=== PATIENT | female | born 1965 | race American Indian/Alaskan Native ===

== ENCOUNTER 2020-12-22 23:05 | Emergency (ER) | payer OTHER ==
[2020-12-23] VITALS: BP 156/78
[2020-12-23] MEDS ORDERED: ASPIRIN 325 MG TAB PO ONE (00:07)
[2020-12-23 01:25] LABS: Basophils % (Auto) 0.6 % (0.0-1.8); Eosinophils # (Auto) 0.1 K/mm3 (0.0-0.4); Eosinophils % (Auto) 1.9 % (0.0-4.3); Hematocrit 42.3 % (30.3-42.9); Hemoglobin 14.7 gm/dl (10.1-14.3); Lymphocytes # (Auto) 2.6 K/mm3 (1.2-5.4); Lymphocytes % (Auto) 35.7 % (13.4-35.0); Mean Corpuscular HGB Conc 35 % (30-34); Mean Corpuscular Volume 98 fl (79-97); Monocytes # (Auto) 0.5 K/mm3 (0.0-0.8); Monocytes % (Auto) 7.4 % (0.0-7.3); Platelet Count 306 K/mm3 (140-440); Red Cell Distribution Width 13.1 % (13.2-15.2)
[2020-12-23 01:29] LABS: Alanine Aminotransferase 16 units/L (7-56); Albumin 5.2 g/dL (3.9-5); Blood Urea Nitrogen 7 mg/dL (7-17); Calcium 9.7 mg/dL (8.4-10.2); Hemolysis Index 13
[2020-12-23 01:30] LABS: BUN/Creatinine Ratio 14
--- NOTE | 2020-12-23 01:43 | XRay Report ---
CHEST 2 VIEWS INDICATION: sob. COMPARISON: FINDINGS: Support devices: None. Heart: Within normal limits. Lungs: No acute air space or interstitial disease. Pleura: No significant pleural effusion. No pneumothorax. Additional findings: None. IMPRESSION: 1. No acute findings. Signer Name: Jeff Simpson MD Signed: 12/23/2020 1:38 AM Workstation Name: [id number]
--- NOTE | 2020-12-23 10:23 | Electrocardiograph Report ---
[facility] Test Date: 2020-12-23 Test Time: 00:13:31 Pat Name: DELMI DAVIS Department: Room: Gender: F Harpsichord Maker: KANCHAN : 1965 Requested By: STEPHEN PHAM Order Number: [id number] Reading MD: Johan Negron Measurements Intervals [place] Rate: 63 P: 52 [place]: 183 QRS: -1 QRSD: 113 T: 40 QT: 437 QTc: 448 Interpretive Statements Sinus rhythm Incomplete RBBB and LAFB No previous ECG available for comparison Electronically Signed On 12-23-2020 10:23:18 EDT by Johan Negron
== END 2020-12-23 03:05 | disposition left against medical advice (07) ==
LOC: ED 23:05
DX: R53.1 Weakness (principal); Z53.21 Procedure and treatment not carried out due to patient leaving prior to being seen by health care provider
CPT/HCPCS: 36415; 71046; 80053; 84484; 85025; 93005

== ENCOUNTER 2021-01-16 06:53 | Inpatient (IN) | payer OTHER ==
[2021-01-16 07:33] LABS: Basophils # (Auto) 0.1 K/mm3 (0.0-0.1); Basophils % (Auto) 0.5 % (0.0-1.8); Eosinophils # (Auto) 0.3 K/mm3 (0.0-0.4); Eosinophils % (Auto) 2.4 % (0.0-4.3); Hematocrit 36.7 % (30.3-42.9); Lymphocytes # (Auto) 2.3 K/mm3 (1.2-5.4); Lymphocytes % (Auto) 21.4 % (13.4-35.0); Mean Corpuscular HGB Conc 36 % (30-34); Mean Corpuscular Volume 97 fl (79-97); Monocytes # (Auto) 0.7 K/mm3 (0.0-0.8); Monocytes % (Auto) 6.7 % (0.0-7.3); Platelet Count 255 K/mm3 (140-440); Red Blood Count 3.77 M/mm3 (3.65-5.03); Red Cell Distribution Width 12.8 % (13.2-15.2)
[2021-01-16 07:53] LABS: Blood Urea Nitrogen 4 mg/dL (7-17); Calcium 9.6 mg/dL (8.4-10.2); Hemolysis Index 17
--- NOTE | 2021-01-16 08:07 | XRay Report ---
CHEST 2 VIEWS INDICATION: Chest Pain. COMPARISON: 12/23/2020 FINDINGS: Support devices: None. Heart: Within normal limits. Lungs/pleura: No acute air space or interstitial disease. No pneumothorax. Additional findings: None. IMPRESSION: No acute findings. Signer Name: J Carlos Bauer Jr, MD Signed: 01/16/2021 8:03 AM Workstation Name: [id number]
--- NOTE | 2021-01-16 08:16 | Emergency Department Report ---
ED Chest Pain HPI - General Chief Complaint: Chest Pain Stated Complaint: CHEST PAIN Time Seen by Provider: 01/16/21 08:00 Source: patient Mode of arrival: Wheelchair Limitations: No Limitations - History of Present Illness Initial Comments: 55-year-old female with history of hypertension, asthma, sinus headaches presents complaining of mid substernal chest pain since approximately 2 AM this morning. The patient reports that she woke up in the middle of the night approximately 2 AM with pain in her chest which was radiating to her back. She describes the pain as very sharp. She says that since waking up with the pain at 2 AM, the pain has been persistent and has not gone away. Separate from the pain in the chest she also has generalized body aches and mild global headache. The chest pain radiates to her back but does not radiate to the jaw or to the arms. She denies any symptoms associated with the chest pain including nausea/vomiting, shortness of breath, cough, palpitations, syncope, or any other complaints. She also denies any fever/chills, vision change, new neck pain, abdominal pain, numbness, focal weakness, or any other complaints. She has not tried taking anything for her symptoms. She is not vaccinated against the novel coronavirus. Severity scale (0 -10): 8 - Related Data Allergies Allergy/AdvReac Type Severity Reaction Status Date / Time No Known Allergies Allergy Verified 12/23/20 03:06 Heart Score - HEART Score History: Moderately suspicious EKG: Normal Age: 45-65 Risk factors: 1-2 risk factors Troponin: < normal limit HEART Score: 3 - EKG Read Time Time EKG Completed: 07:01 EKG Read Time: 07:05 ED Review of Systems ROS: Stated complaint: CHEST PAIN Other details as noted in HPI Constitutional: denies: chills, fever Eyes: denies: eye pain, vision change ENT: denies: throat pain, congestion Respiratory: denies: cough, shortness of breath Cardiovascular: chest pain. denies: palpitations, edema, syncope Gastrointestinal: denies: abdominal pain, nausea, vomiting Genitourinary: denies: dysuria, frequency Musculoskeletal: myalgia. denies: joint swelling Skin: denies: rash Neurological: headache. denies: weakness, numbness ED Past Medical Hx - Past Medical History Hx Hypertension: Yes Hx Arthritis: Yes Hx Headaches / Migraines: Yes Hx Asthma: Yes Additional medical history: chest pain, denies any stents - Surgical History Past Surgical History?: Yes Additional Surgical History: c-sections x 2 ED Physical Exam - General Limitations: No Limitations - Other Other exam information: GENERAL: Well developed and well nourished. No acute distress HEENT: Normocephalic. No obvious signs of trauma. Moist mucous membranes. EYES: Extraocular movements are intact. NECK: Supple. Full painless ROM. Trachea is midline. LUNGS: Nonlabored breathing. Equal chest rise bilaterally. Clear to auscultation bilaterally. HEART/CARDIOVASCULAR: Regular rate and rhythm. No murmurs or rubs. VASCULAR: 2+ peripheral pulses, equal bilaterally. Cap refill < 2 seconds ABDOMEN: Abdomen is soft and nondistended. There is no significant tenderness, guarding or rebound. SKIN: Skin is warm and dry NEURO: Patient is awake, alert, and oriented. senior medical director II-XII grossly intact. No focal deficits. Normal motor and sensory exam throughout. Normal speech. MUSCULOSKELETAL: No obvious deformities. No significant tenderness. Normal ROM throughout. BACK/SPINE: No midline tenderness or step-offs of the C/T/L spine. ED Course Vital Signs 01/16/21 01/16/21 01/16/21 07:02 08:12 08:56 Temperature 98.5 F Pulse Rate 74 68 61 Respiratory 24 18 Rate Blood Pressure 188/95 Blood Pressure 197/117 187/90 [Right] O2 Sat by Pulse 99 98 Oximetry 01/16/21 01/16/21 01/16/21 09:47 10:41 11:23 Temperature Pulse Rate 66 68 Respiratory 16 16 Rate Blood Pressure 188/92 Blood Pressure 171/85 [Right] O2 Sat by Pulse 98 Oximetry 01/16/21 11:35 Temperature Pulse Rate 65 Respiratory Rate Blood Pressure Blood Pressure 165/83 [Right] O2 Sat by Pulse Oximetry BIB score - Bib Score Age > 65: (0) No Aspirin use within the Past 7 Days: (0) No 3 or more CAD Risk Factors: (0) No 2 or more Angina events in past 24 hrs: (0) No Known CAD with more than 50% Stenosis: (0) No Elevated Cardiac Markers: (0) No ST Deviation Greater than 0.5mm: (0) No BIB Score: 0 ED Medical Decision Making - Lab Data Result diagrams: 01/16/21 07:05 01/16/21 07:05 Lab Results 01/16/21 01/16/21 01/16/21 Range/Units 07:05 07:05 07:05 WBC 10.6 (4.5-11.0) K/mm3 RBC 3.77 (3.65-5.03) M/mm3 Hgb 13.0 (10.1-14.3) gm/dl Hct 36.7 (30.3-42.9) % MCV 97 (79-97) fl MCH 35 H (28-32) pg MCHC 36 H (30-34) % RDW 12.8 L (13.2-15.2) % Plt Count 255 (140-440) K/mm3 Lymph % (Auto) 21.4 (13.4-35.0) % [place] % (Auto) 6.7 (0.0-7.3) % Eos % (Auto) 2.4 (0.0-4.3) % Baso % (Auto) 0.5 (0.0-1.8) % Lymph # (Auto) 2.3 (1.2-5.4) K/mm3 [place] # (Auto) 0.7 (0.0-0.8) K/mm3 Eos # (Auto) 0.3 (0.0-0.4) K/mm3 Baso # (Auto) 0.1 (0.0-0.1) K/mm3 Seg Neutrophils % 69.0 (40.0-70.0) % Seg Neutrophils # 7.3 (1.8-7.7) K/mm3 PT (12.2-14.9) Sec. INR (0.87-1.13) APTT (24.2-36.6) Sec. D-Dimer < 135 (0-234) ng/mlDDU Sodium 140 (137-145) mmol/L Potassium 3.7 (3.6-5.0) mmol/L Chloride 101.7 (98-107) mmol/L Carbon Dioxide 27 (22-30) mmol/L Anion Gap 15 mmol/L BUN 4 L (7-17) mg/dL Creatinine 0.5 L (0.6-1.2) mg/dL Estimated GFR > 60 ml/min BUN/Creatinine Ratio 8 % Glucose 108 H (65-100) mg/dL Calcium 9.6 (8.4-10.2) mg/dL Magnesium (1.7-2.3) mg/dL Total Bilirubin (0.1-1.2) mg/dL Direct Bilirubin (0-0.2) mg/dL Indirect Bilirubin mg/dL AST (5-40) units/L ALT (7-56) units/L Alkaline Phosphatase (35-129) units/L Troponin T < 0.010 (0.00-0.029) ng/mL Total Protein (6.3-8.2) g/dL Albumin (3.9-5) g/dL Albumin/Globulin Ratio % 01/16/21 01/16/21 Range/Units 07:05 08:20 WBC (4.5-11.0) K/mm3 RBC (3.65-5.03) M/mm3 Hgb (10.1-14.3) gm/dl Hct (30.3-42.9) % MCV (79-97) fl MCH (28-32) pg MCHC (30-34) % RDW (13.2-15.2) % Plt Count (140-440) K/mm3 Lymph % (Auto) (13.4-35.0) % [place] % (Auto) (0.0-7.3) % Eos % (Auto) (0.0-4.3) % Baso % (Auto) (0.0-1.8) % Lymph # (Auto) (1.2-5.4) K/mm3 [place] # (Auto) (0.0-0.8) K/mm3 Eos # (Auto) (0.0-0.4) K/mm3 Baso # (Auto) (0.0-0.1) K/mm3 Seg Neutrophils % (40.0-70.0) % Seg Neutrophils # (1.8-7.7) K/mm3 PT 13.9 (12.2-14.9) Sec. INR 1.01 (0.87-1.13) APTT 28.6 (24.2-36.6) Sec. D-Dimer (0-234) ng/mlDDU Sodium (137-145) mmol/L Potassium (3.6-5.0) mmol/L Chloride (98-107) mmol/L Carbon Dioxide (22-30) mmol/L Anion Gap mmol/L BUN (7-17) mg/dL Creatinine (0.6-1.2) mg/dL Estimated GFR ml/min BUN/Creatinine Ratio % Glucose (65-100) mg/dL Calcium (8.4-10.2) mg/dL Magnesium 2.00 (1.7-2.3) mg/dL Total Bilirubin 0.30 (0.1-1.2) mg/dL Direct Bilirubin < 0.2 (0-0.2) mg/dL Indirect Bilirubin 0.1 mg/dL AST 25 (5-40) units/L ALT 18 (7-56) units/L Alkaline Phosphatase 85 (35-129) units/L Troponin T (0.00-0.029) ng/mL Total Protein 7.7 (6.3-8.2) g/dL Albumin 4.7 (3.9-5) g/dL Albumin/Globulin Ratio 1.6 % - EKG Data -: EKG Interpreted by Hi - EKG Data 01/16/21 08:47 Normal sinus rhythm. Normal intervals. Normal axis. No ectopy. No significant ST segment or T wave abnormalities. - Radiology Data CHEST 2 VIEWS INDICATION: Chest Pain. COMPARISON: 12/23/2020 FINDINGS: Support devices: None. Heart: Within normal limits. Lungs/pleura: No acute air space or interstitial disease. No pneumothorax. Additional findings: None. IMPRESSION: No acute findings. Signer Name: J Carlos Bauer Jr, MD Signed: 01/16/2021 7:03 AM Workstation Name: [id number] CT CHEST WITH CONTRAST INDICATION / CLINICAL INFORMATION: assess for aortic dissection, chest pain, Pt states that she is having chest pain that radiate to her shoulder and down to her wrist. OMNI 300 100 ML. TECHNIQUE: Axial CT images were obtained through the chest after 100 cc IV contrast. Sagittal and coronal reformatted images. All CT scans at this location are performed using CT dose reduction for ALARA by means of automated exposure control. COMPARISON: None available. FINDINGS: HEART: No significant abnormality. THORACIC AORTA: Imaging of the thoracic aorta is slightly limited due to cardiac motion. No dissection is confidently identified. The ascending aorta measures 3.5 cm. The descending thoracic aorta measures 2.0 cm at the same level. Minimal atherosclerotic dis ease is noted. There appears to be a mild degree of fluid in the superior pericardial recess. MEDIASTINUM and CYN: No significant abnormality. LUNGS: No acute air space or interstitial disease. PLEURA: No significant pleural effusion. No pneumothorax. SKELETAL SYSTEM: No significant abnormality. UPPER ABDOMEN: No significant abnormality. ADDITIONAL FINDINGS: None. IMPRESSION: No acute cardiopulmonary process is appreciated. Evaluation of the thoracic aorta is slightly limited as described but no convincing aortic dissection is detected. Signer Name: J Carlos Bauer Jr, MD Signed: 01/16/2021 8:11 AM Workstation Name: [id number] - Medical Decision Making 55-year-old female presenting with persistent mid substernal chest pain radiating to the back since waking up at 2 AM. Patient also reports body aches and global pressure-like headache. No radiation of chest pain to the jaw or arms. No other associated symptoms. On initial assessment, the patient is a febrile and with normal vital signs other than significantly elevated blood pressure in the 190s over 110s. On physical examination, the patient appears slightly frail but otherwise has no significant abnormalities. The patient's heart score is 3 and BIB score is 0. Initial troponin is negative. There is no significant leukocytosis or anemia. There is no significant electrolyte abnormality. Kidney function is normal. D-dimer is negative. Initial troponin is negative. Nonetheless, given that the patient has chest pain radiating to the back with greatly elevated blood pressure we will perform CT angiogram of the chest to assess for aortic dissection. We will give one 0.4 mg nitrogly cerin sublingual for the patient's chest pain if the patient will except in light of her current headache. At 9:35 AM, the nurse alerted me that the patient received the sublingual nitroglycerin and this did not help her chest pain at all. In fact, she states that it might of worsened it. CT angiogram of the chest reveals no evidence of aortic dissection. Nonetheless, given the patient has persistent chest pain we will administer aspirin 325 mg and 2 mg of IV morphine and plan to admit the p atient to medicine for unstable angina and further trending of cardiac enzymes and work-up. All of this was discussed with the patient who expressed understanding and agreement with the plan of care. At 9:45 AM, I spoke with Dr. Valdez who states that the admission will go to Dr. Humphries. On repeat assessment at 10:20 AM after administration of morphine, the patient reports that her chest pain has improved dramatically, almost entirely resolved. Patient's blood pressure has improved from the 190 systolic to the 170s systolic after better pain control. We will give 10 mg of IV labetalol for better blood pressure control. Critical Care Time: Yes (35 mins) Critical care time in (mins) excluding proc time.: 35 Critical care attestation.: If time is entered above; I have spent that time in minutes in the direct care of this critically ill patient, excluding procedure time. Critical care time was spent in the evaluation/assessment, interpretation of diagnostic studies, and management of unstable angina as well as hypertensive urgency requiring ministration of IV antihypertensives. ED Disposition Clinical Impression: Unstable angina, Hypertensive urgency Disposition: -09 OP ADMIT IP TO THIS HOSP Is pt being admited?: Yes Condition: Stable
[2021-01-16] MEDS ORDERED: NITROGLYCERIN 0.4 MG TAB SUBL SL ONE (08:19)
[2021-01-16 08:27] LABS: BUN/Creatinine Ratio 8
[2021-01-16 08:32] LABS: Alanine Aminotransferase 18 units/L (7-56); Albumin 4.7 g/dL (3.9-5)
[2021-01-16 08:41] LABS: Bilirubin,Direct < 0.2 mg/dL (0-0.2)
--- NOTE | 2021-01-16 08:42 | XRay Report ---
CHEST 2 VIEWS 8:27 AM INDICATION / CLINICAL INFORMATION: Chest pains. COMPARISON: Earlier today at 7:28 AM. FINDINGS: SUPPORT DEVICES: None. HEART / MEDIASTINUM: The heart size and pulmonary vasculature are normal. There is mild calcification in the aortic arch without aneurysm. LUNGS / PLEURA: No significant pulmonary or pleural abnormality. No pneumothorax. ADDITIONAL FINDINGS: No significant additional findings. IMPRESSION: No acute abnormality or significant change. Signer Name: Derick Montero MD Signed: 01/16/2021 8:38 AM Workstation Name: [id number]
[2021-01-16 09:01] LABS: INR 1.01 (0.87-1.13)
[2021-01-16 09:02] LABS: Partial Thromboplastin Time 28.6 Sec. (24.2-36.6)
--- NOTE | 2021-01-16 09:15 | Cat Scan Report ---
CT CHEST WITH CONTRAST INDICATION / CLINICAL INFORMATION: assess for aortic dissection, chest pain, Pt states that she is baez ving chest pain that radiate to her shoulder and down to her wrist. OMNI 300 100 ML. TECHNIQUE: Axial CT images were obtained through the chest after 100 cc IV contrast. Sagittal and coronal reform atted images. All CT scans at this location are performed using CT dose reduction for ALARA by means of automated exposure control. COMPARISON: None available. FINDINGS: HEART: No significant abnormality. THORACIC AORTA: Imaging of the thoracic aorta is slightly limited due to cardiac motion. No dissectio n is confidently identified. The ascending aorta measures 3.5 cm. The descending thoracic aorta measu res 2.0 cm at the same level. Minimal atherosclerotic disease is noted. There appears to be a mild de gree of fluid in the superior pericardial recess. MEDIASTINUM and CYN: No significant abnormality. LUNGS: No acute air space or interstitial disease. PLEURA: No significant pleural effusion. No pneumothorax. SKELETAL SYSTEM: No significant abnormality. UPPER ABDOMEN: No significant abnormality. ADDITIONAL FINDINGS: None. IMPRESSION: No acute cardiopulmonary process is appreciated. Evaluation of the thoracic aorta is slightly limited as described but no convincing aortic dissection is detected. Signer Name: J Carlos Bauer Jr, MD Signed: 01/16/2021 9:11 AM Workstation Name: [id number]
[2021-01-16] MEDS ORDERED: ASPIRIN 325 MG TAB PO ONE (09:39)
[2021-01-16] MEDS ORDERED: MORPHINE 2 MG/1 ML INJ IV ONE (09:42)
[2021-01-16] MEDS ORDERED: MORPHINE 2 MG/1 ML INJ IV PRN (16:12)
[2021-01-16] MEDS ORDERED: METOCLOPRAMIDE 10 MG/2 ML INJ IV PRN (18:32)
[2021-01-16] MEDS ORDERED: HYDROcodone/ACETAMINOPHEN 5-325 MG TAB PO PRN (18:32)
[2021-01-16] MEDS ORDERED: ACETAMINOPHEN 325 MG TAB PO PRN (18:32)
[2021-01-16] MEDS ORDERED: HYDROmorphone 1 MG/1 ML INJ IV PRN (18:32)
[2021-01-16] MEDS ORDERED: ONDANSETRON 4 MG/2 ML INJ IV PRN (18:32)
--- NOTE | 2021-01-16 18:32 | History and Physical Report ---
History of Present Illness Date of examination: 01/16/21 Date of admission: 01/16/21 09:45 Chief complaint: Chest pain since 2 AM History of present illness: 55-year-old with history of hypertension iron recurrent headaches comes in for retrosternal chest pain since 2 AM. Chest pain radiating to her left arm and back. No diaphoresis. No shortness of breath. Patient smokes about half a pack a day. No syncope. No precipitating or exacerbating factors. Chest pain is about 5 on a scale of 1-10. During my examination patient was lying comfortably in the bed. In no distress. Communicates well. No fever or chills. No exposure to coronavirus. She is not vaccinated against the global coronavirus. Heart Score - HEART Score History: Moderately suspicious EKG: Normal Age: 45-65 Risk factors: 1-2 risk factors Troponin: < normal limit HEART Score: 3 - Past Medical History --Hypertension: Yes --Arthritis: Yes --Headaches / Migraines: Yes --Asthma: Yes --Additional medical history: chest pain, denies any stents - Surgical History Past Surgical History?: Yes Additional Surgical History: c-sections x 2 -Social history smokes about half a pack a day -Family history htn Review of Systems ROS: Stated complaint: CHEST PAIN Other details as noted in HPI Constitutional: denies: chills, fever Eyes: denies: eye pain, vision change ENT: denies: throat pain, congestion Respiratory: denies: cough, shortness of breath Cardiovascular: chest pain. denies: palpitations, edema, syncope Gastrointestinal: denies: abdominal pain, nausea, vomiting Genitourinary: denies: dysuria, frequency Musculoskeletal: myalgia. denies: joint swelling Skin: denies: rash Neurological: headache. denies: weakness, numbness Medications and Allergies Allergies Allergy/AdvReac Type Severity Reaction Status Date / Time No Known Allergies Allergy Verified 12/23/20 03:06 Active Meds: Active Medications Morphine Sulfate (Morphine 2 Mg/1 Ml Inj) 2 mg IV Q3H PRN PRN Reason: Pain, Moderate (4-6) Last Admin: 01/16/21 16:24 Dose: 2 mg Documented by: Exam - Constitutional Vitals: Temp Pulse Resp BP Pulse Ox 98.5 F 68 14 173/89 100 01/16/21 07:02 01/16/21 15:39 01/16/21 15:39 01/16/21 15:39 01/16/21 15:39 General appearance: Present: no acute distress, well-nourished - EENT Eyes: Present: PERRL ENT: hearing intact, clear oral mucosa - Neck Neck: Present: supple, normal ROM - Respiratory Respiratory effort: normal Respiratory: bilateral: CTA - Cardiovascular Heart rate: 78 Rhythm: regular Heart Sounds: Present: S1 & S2. Absent: rub, click - Extremities Extremities: no ischemia, pulses intact, pulses symmetrical, No edema Peripheral Pulses: within normal limits - Abdominal General gastrointestinal: Present: soft, non-tender, non-distended, normal bowel sounds Female genitourinary: Present: normal - Integumentary Integumentary: Present: clear, warm, dry - Musculoskeletal Musculoskeletal: gait normal, strength equal bilaterally - Psychiatric Psychiatric: appropriate mood/affect, intact judgment & insight - Neurologic Neurologic: CNII-XII intact, moves all extremities HEART Score - HEART Score EKG: Normal Age: 45-65 Risk factors: 1-2 risk factors Troponin: Troponin T < 0.010 ng/mL (0.00-0.029) 01/16/21 14:11 Troponin: < normal limit Results - Labs CBC & Chem 7: 01/17/21 05:08 01/17/21 05:08 Labs: Laboratory Last Values WBC 10.6 K/mm3 (4.5-11.0) 01/16/21 07:05 RBC 3.77 M/mm3 (3.65-5.03) 01/16/21 07:05 Hgb 13.0 gm/dl (10.1-14.3) 01/16/21 07:05 Hct 36.7 % (30.3-42.9) 01/16/21 07:05 MCV 97 fl (79-97) 01/16/21 07:05 MCH 35 pg (28-32) H 01/16/21 07:05 MCHC 36 % (30-34) H 01/16/21 07:05 RDW 12.8 % (13.2-15.2) L 01/16/21 07:05 Plt Count 255 K/mm3 (140-440) 01/16/21 07:05 Lymph % (Auto) 21.4 % (13.4-35.0) 01/16/21 07:05 [place] % (Auto) 6.7 % (0.0-7.3) 01/16/21 07:05 Eos % (Auto) 2.4 % (0.0-4.3) 01/16/21 07:05 Baso % (Auto) 0.5 % (0.0-1.8) 01/16/21 07:05 Lymph # (Auto) 2.3 K/mm3 (1.2-5.4) 01/16/21 07:05 [place] # (Auto) 0.7 K/mm3 (0.0-0.8) 01/16/21 07:05 Eos # (Auto) 0.3 K/mm3 (0.0-0.4) 01/16/21 07:05 Baso # (Auto) 0.1 K/mm3 (0.0-0.1) 01/16/21 07:05 Seg Neutrophils % 69.0 % (40.0-70.0) 01/16/21 07:05 Seg Neutrophils # 7.3 K/mm3 (1.8-7.7) 01/16/21 07:05 PT 13.9 Sec. (12.2-14.9) 01/16/21 08:20 INR 1.01 (0.87-1.13) 01/16/21 08:20 APTT 28.6 Sec. (24.2-36.6) 01/16/21 08:20 D-Dimer < 135 ng/mlDDU (0-234) 01/16/21 07:05 Sodium 140 mmol/L (137-145) 01/16/21 07:05 Potassium 3.7 mmol/L (3.6-5.0) 01/16/21 07:05 Chloride 101.7 mmol/L (98-107) 01/16/21 07:05 Carbon Dioxide 27 mmol/L (22-30) 01/16/21 07:05 Anion Gap 15 mmol/L 01/16/21 07:05 BUN 4 mg/dL (7-17) L 01/16/21 07:05 Creatinine 0.5 mg/dL (0.6-1.2) L 01/16/21 07:05 Estimated GFR > 60 ml/min 01/16/21 07:05 BUN/Creatinine Ratio 8 % 01/16/21 07:05 Glucose 108 mg/dL (65-100) H 01/16/21 07:05 Calcium 9.6 mg/dL (8.4-10.2) 01/16/21 07:05 Magnesium 2.00 mg/dL (1.7-2.3) 01/16/21 07:05 Total Bilirubin 0.30 mg/dL (0.1-1.2) 01/16/21 07:05 Direct Bilirubin < 0.2 mg/dL (0-0.2) 01/16/21 07:05 Indirect Bilirubin 0.1 mg/dL 01/16/21 07:05 AST 25 units/L (5-40) 01/16/21 07:05 ALT 18 units/L (7-56) 01/16/21 07:05 Alkaline Phosphatase 85 units/L (35-129) 01/16/21 07:05 Troponin T < 0.010 ng/mL (0.00-0.029) 01/16/21 14:11 Total Protein 7.7 g/dL (6.3-8.2) 01/16/21 07:05 Albumin 4.7 g/dL (3.9-5) 01/16/21 07:05 Albumin/Globulin Ratio 1.6 % 01/16/21 07:05 Short CBC 01/16/21 01/17/21 Range/Units 07:05 05:08 WBC 10.6 9.4 (4.5-11.0) K/mm3 Hgb 13.0 13.0 (10.1-14.3) gm/dl Hct 36.7 38.2 (30.3-42.9) % Plt Count 255 255 (140-440) K/mm3 BMP 01/16/21 01/17/21 07:05 05:08 Sodium 140 140 Potassium 3.7 3.3 L Chloride 101.7 101.3 Carbon Dioxide 27 27 BUN 4 L 6 L Creatinine 0.5 L 0.5 L Glucose 108 H 98 Calcium 9.6 9.8 Cardiac Enzymes 01/16/21 01/16/21 01/16/21 Range/Units 07:05 14:11 19:23 Troponin T < 0.010 < 0.010 0.018 (0.00-0.029) ng/mL 01/17/21 Range/Units 00:16 Troponin T 0.061 H D (0.00-0.029) ng/mL Liver Function 01/16/21 01/17/21 Range/Units 07:05 05:08 Total Bilirubin 0.30 0.80 (0.1-1.2) mg/dL Direct Bilirubin < 0.2 (0-0.2) mg/dL AST 25 22 (5-40) units/L ALT 18 14 (7-56) units/L Alkaline Phosphatase 85 85 (35-129) units/L Albumin 4.7 4.3 (3.9-5) g/dL - Imaging and Cardiology EKG: report reviewed (Sinus rhythm no acute ST-T wave changes) Chest x-ray: report reviewed (No acute findings) Imaging and Cardiology: Chest CT No acute cardiopulmonary process is appreciated. Evaluation of the thoracic aorta is slightly limited as described but no convincing aortic dissection is detected. Assessment and Plan Advance Directives: Yes (Full code) VTE prophylaxis?: Chemical Plan of care discussed with patient/family: Yes - Patient Problems (1) Acute coronary syndrome Current Visit: Yes Status: Acute Plan to address problem: Serial troponins Lexiscan in the morning Differential diagnosis of costochondritis and GERD-both unlikely because there is no chest wall tenderness or reflux (2) Hypertensive emergency Current Visit: Yes Status: Acute Plan to address problem: Patient started on valsartan 160 every 12 and Coreg Hydralazine 10 mg every 3 as needed IV Patient counseled about her hypertension Patient is noncompliant with blood pressure medications (3) COPD (chronic obstructive pulmonary disease) Current Visit: Yes Status: Chronic Qualifiers: Emphysema type: unspecified Plan to address problem: DuoNebs as needed (4) Nicotine dependence Current Visit: Yes Status: Chronic Qualifiers: Nicotine product type: cigarettes Plan to address problem: Patient is also a pack a day Patient counseled about stopping smoking and the dangers of smoking Patient initiated on NicoDerm patch (5) Hypokalemia Current Visit: Yes Status: Acute Plan to address problem: Supplemented (6) DVT prophylaxis Current Visit: Yes Status: Acute Plan to address problem: On heparin and GI prophylaxis
[2021-01-16] MEDS ORDERED: D5W/0.9% NACL 1,000 ML IV SCH (19:00)
[2021-01-16] MEDS: HEPARIN 5,000 UNIT/1 ML VIAL SUB-Q SCH (21:46)
[2021-01-16] MEDS: FAMOTIDINE 20 MG/2 ML INJ IV SCH (21:47)
[2021-01-17 01:09] LABS: Chol/HDL Ratio 2.98 %
[2021-01-17 05:51] LABS: Basophils # (Auto) 0.1 K/mm3 (0.0-0.1); Basophils % (Auto) 0.5 % (0.0-1.8); Eosinophils # (Auto) 0.2 K/mm3 (0.0-0.4); Eosinophils % (Auto) 1.9 % (0.0-4.3); Hematocrit 38.2 % (30.3-42.9); Lymphocytes # (Auto) 3.2 K/mm3 (1.2-5.4); Lymphocytes % (Auto) 34.4 % (13.4-35.0); Mean Corpuscular HGB Conc 34 % (30-34); Mean Corpuscular Volume 98 fl (79-97); Monocytes # (Auto) 0.8 K/mm3 (0.0-0.8); Monocytes % (Auto) 8.4 % (0.0-7.3); Platelet Count 255 K/mm3 (140-440); Red Blood Count 3.92 M/mm3 (3.65-5.03); Red Cell Distribution Width 13.1 % (13.2-15.2)
[2021-01-17 06:15] LABS: Alanine Aminotransferase 14 units/L (7-56); Albumin 4.3 g/dL (3.9-5); BUN/Creatinine Ratio 12; Blood Urea Nitrogen 6 mg/dL (7-17); Calcium 9.8 mg/dL (8.4-10.2); Hemolysis Index 2
[2021-01-17] MEDS ORDERED: hydrALAZINE 20 MG/1 ML INJ IV PRN (08:00)
[2021-01-17] MEDS ORDERED: NICOTINE 14 MG/24 HR PATCH TD SCH (08:00)
[2021-01-17] MEDS ORDERED: POTASSIUM CHLORIDE ER 20 MEQ TAB PO SCH (08:00)
[2021-01-17] MEDS: FAMOTIDINE 20 MG/2 ML INJ IV SCH ×2 (09:17→21:03)
[2021-01-17] MEDS: HEPARIN 5,000 UNIT/1 ML VIAL SUB-Q SCH ×2 (09:17→21:03)
[2021-01-17] MEDS: VALSARTAN 160MG TAB PO SCH ×2 (09:18→21:02)
[2021-01-17] MEDS: carvediloL 6.25 MG TAB PO SCH ×2 (09:18→21:02)
--- NOTE | 2021-01-17 11:12 | Electrocardiograph Report ---
[facility] Test Date: 2021-01-16 Test Time: 07:01:59 Pat Name: DELMI DAVIS Department: Room: A463 Gender: F Raise Miner: TV : 1965 Requested By: NEVIN GALARZA Order Number: [id number] Reading MD: Paulo Louis Measurements Intervals [place] Rate: 68 P: 61 IA: 174 QRS: 35 QRSD: 112 T: 43 QT: 419 QTc: 447 Interpretive Statements Sinus rhythm Probable left atrial enlargement Incomplete right bundle branch block Compared to ECG 12/23/2020 00:13:31 Left anterior fascicular block no longer present Right bundle-branch block no longer present Electronically Signed On 01-17-2021 11:12:00 EDT by Paulo Louis
--- NOTE | 2021-01-17 11:22 | Consultation ---
History of Present Illness Consult date: 01/17/21 Consult reason: chest pain, elevated troponin History of present illness: This is a 55-year old F who presents with chest pain. Chest pain is poorly characterized and intermittent for several weeks, associated with upper back pain. She denies exertional chest pain and denies exertional fatigue. Denies palpitations, and denies shortness of breath. On presentation to the emergency department, patient was severely hypertensive, systolic blood pressure at 197. 2 week ago, patient was told her blood pressure was elevated at her PCP office but was not given a diagnosis of hypertension and was not started on any medications. A chest x-ray shows no acute findings. Her ECG is sinus rhythm with an incomplete right bundle branch block. Patient has no prior cardiac history and had no prior cardiac evaluation. Patient was admitted by the hospitalist for rule out [place] protocol and ordered to undergo a stress thallium test. Due to findings of trending elevation of troponin measurements, the stress test was canceled. Cardiology consultation has been requested for further recommendations. Past History Past Medical History: No medical history Social history: smoking Medications and Allergies Allergies Allergy/AdvReac Type Severity Reaction Status Date / Time No Known Allergies Allergy Verified 12/23/20 03:06 Active Meds: Active Medications Acetaminophen (Acetaminophen 325 Mg Tab) 650 mg PO Q4H PRN PRN Reason: Pain MILD(1-3)/Fever >100.5/MAC Hydrocodone Bitart/Acetaminophen (Hydrocodone/Acetaminophen 5-325 Mg Tab) 2 each PO Q6H PRN PRN Reason: Pain, Moderate (4-6) Carvedilol (Carvedilol 6.25 Mg Tab) 6.25 mg PO BID [facility] Last Admin: 01/17/21 09:18 Dose: 6.25 mg Documented by: Famotidine (Famotidine 20 Mg/2 Ml Inj) 20 mg IV BID [facility] Last Admin: 01/17/21 09:17 Dose: 20 mg Documented by: Heparin Sodium (Porcine) (Heparin 5,000 Unit/1 Ml Vial) 5,000 unit SUB-Q Q12HR [facility] Last Admin: 01/17/21 09:17 Dose: 5,000 unit Documented by: Hydralazine HCl (Hydralazine 20 Mg/1 Ml Inj) 10 mg IV Q3H PRN PRN Reason: Blood Pressure Hydromorphone HCl (Hydromorphone 1 Mg/1 Ml Inj) 0.5 mg IV Q3H PRN PRN Reason: Pain , Severe (7-10) Last Admin: 01/16/21 19:42 Dose: 0.5 mg Documented by: Dextrose/Sodium Chloride (D5ns) 1,000 mls @ 75 mls/hr IV DIRECT GIN Metoclopramide HCl (Metoclopramide 10 Mg/2 Ml Inj) 10 mg IV Q6H PRN PRN Reason: Nausea And Vomiting Morphine Sulfate (Morphine 2 Mg/1 Ml Inj) 2 mg IV Q3H PRN PRN Reason: Pain, Moderate (4-6) Last Admin: 01/16/21 16:24 Dose: 2 mg Documented by: Ondansetron HCl (Ondansetron 4 Mg/2 Ml Inj) 4 mg IV Q8H PRN PRN Reason: Nausea And Vomiting Potassium Chloride (Potassium Chloride Er 20 Meq Tab) 40 meq PO ONCE [facility] Stop: 01/17/21 12:00 Last Admin: 01/17/21 09:17 Dose: 40 meq Documented by: Sodium Chloride (Sodium Chloride 0.9% 10 Ml Flush Syringe) 10 ml IV BID [facility] Last Admin: 01/17/21 09:18 Dose: 10 ml Documented by: Sodium Chloride (Sodium Chloride 0.9% 10 Ml Flush Syringe) 10 ml IV PRN PRN PRN Reason: LINE FLUSH Valsartan (Valsartan 160mg Tab) 160 mg PO Q12H [facility] Last Admin: 01/17/21 09:18 Dose: 160 mg Documented by: Review of Systems Cardiovascular: chest pain Physical Examination Vital Signs Temp Pulse Resp BP Pulse Ox 98.5 F 74 24 197/117 99 01/16/21 07:02 01/16/21 07:02 01/16/21 07:02 01/16/21 07:02 01/16/21 07:02 General appearance: no acute distress HEENT: Positive: PERRL Neck: Positive: trachea midline Cardiac: Positive: Reg Rate and Rhythm Lungs: Positive: Normal Breath Sounds Neuro: Positive: Grossly Intact Extremities: Absent: edema Results 01/17/21 05:08 01/17/21 05:08 Cardiac Enzymes 01/17/21 Range/Units 05:08 AST 22 (5-40) units/L Lipids 01/17/21 Range/Units 00:16 Triglycerides 80 (2-149) mg/dL Cholesterol 164 (50-199) mg/dL HDL Cholesterol 55 (40-59) mg/dL Cholesterol/HDL Ratio 2.98 % CBC 01/17/21 Range/Units 05:08 WBC 9.4 (4.5-11.0) K/mm3 RBC 3.92 (3.65-5.03) M/mm3 Hgb 13.0 (10.1-14.3) gm/dl Hct 38.2 (30.3-42.9) % Plt Count 255 (140-440) K/mm3 Lymph # (Auto) 3.2 (1.2-5.4) K/mm3 [place] # (Auto) 0.8 (0.0-0.8) K/mm3 Eos # (Auto) 0.2 (0.0-0.4) K/mm3 Baso # (Auto) 0.1 (0.0-0.1) K/mm3 Comprehensive Metabolic Panel 01/17/21 Range/Units 05:08 Sodium 140 (137-145) mmol/L Potassium 3.3 L (3.6-5.0) mmol/L Chloride 101.3 (98-107) mmol/L Carbon Dioxide 27 (22-30) mmol/L BUN 6 L (7-17) mg/dL Creatinine 0.5 L (0.6-1.2) mg/dL Glucose 98 (65-100) mg/dL Calcium 9.8 (8.4-10.2) mg/dL AST 22 (5-40) units/L ALT 14 (7-56) units/L Alkaline Phosphatase 85 (35-129) units/L Total Protein 7.3 (6.3-8.2) g/dL Albumin 4.3 (3.9-5) g/dL Assessment and Plan Chest pain Elevated troponin Hypertensive urgency Hypokalemia Tobacco abuse Will proceed with a cardiac cath for chest pain and ischemic evaluation. Patient agrees to proceed.
[2021-01-17] MEDS ORDERED: HEPARIN/NS 5000 UNIT/500ML 1,000 ML IR ONE (11:39)
--- NOTE | 2021-01-17 11:46 | Progress Note ---
Assessment and Plan Assessment and plan: --Non-ST elevation OR Current Visit: Yes Status: Acute Worsening troponin levels with intermittent chest pain DC Lexiscan test Cardiology consult, cardiology already evaluated the patien schedule for left heart catheterization Managed with cardiac medications aspirin beta-blockers MAINE inhibitors Nitrates and statins. Patient is n.p.o. status --Hypertensive emergency Current Visit: Yes Status: Acute , Patient started on valsartan 160 every 12 and Coreg Hydralazine 10 mg every 3 as needed IV Patient counseled about her hypertension Patient is noncompliant with blood pressure medications --ESRD COPD (chronic obstructive pulmonary disease) Current Visit: Yes Status: Chronic DuoNebs as needed --Nicotine dependence Current Visit: Yes Status: Chronic Patient is also a pack a day Patient counseled about stopping smoking and the dangers of smoking Patient initiated on NicoDerm patch --Hypokalemia Current Visit: Yes Status: Acute Supplemented --DVT prophylaxis Current Visit: Yes Status: Acute On heparin and GI prophylaxis We will closely monitor the patient and adjust the management as needed Plan of care reviewed with the patient and her nurse Follow heart cath and cardiology evaluation recommendations History Interval history: Seen and examined the patient at the bedside Patient's chart and medications reviewed Patient was admitted with atypical chest pain and positive cardiac troponins Patient complains of intermittent chest pain Not in acute distress Vital signs noted Hospitalist Physical - Constitutional Vitals: Temp Pulse Resp BP Pulse Ox 97.2 F L 72 17 120/58 97 01/17/21 07:55 01/17/21 09:18 01/17/21 08:20 01/17/21 09:18 01/17/21 08:20 General appearance: Present: mild distress, well-nourished - EENT Eyes: Present: PERRL, EOM intact - Neck Neck: Present: supple, normal ROM - Respiratory Respiratory effort: normal Respiratory: bilateral: diminished, negative: rales, rhonchi, wheezing - Cardiovascular Rhythm: regular Heart Sounds: Present: S1 & S2 - Extremities Extremities: no ischemia, No edema - Abdominal General gastrointestinal: soft, non-tender, non-distended, normal bowel sounds - Integumentary Integumentary: Present: clear, warm - Psychiatric Psychiatric: appropriate mood/affect, cooperative - Neurologic Neurologic: CNII-XII intact, moves all extremities HEART Score - HEART Score EKG: Normal Age: 45-65 Risk factors: 1-2 risk factors Troponin: Troponin T 0.085 ng/mL (0.00-0.029) H D 01/17/21 05:08 Troponin: < normal limit Results - Labs CBC & Chem 7: 01/17/21 05:08 01/17/21 05:08 Labs: Laboratory Last Values WBC 9.4 K/mm3 (4.5-11.0) 01/17/21 05:08 RBC 3.92 M/mm3 (3.65-5.03) 01/17/21 05:08 Hgb 13.0 gm/dl (10.1-14.3) 01/17/21 05:08 Hct 38.2 % (30.3-42.9) 01/17/21 05:08 MCV 98 fl (79-97) H 01/17/21 05:08 MCH 33 pg (28-32) H 01/17/21 05:08 MCHC 34 % (30-34) 01/17/21 05:08 RDW 13.1 % (13.2-15.2) L 01/17/21 05:08 Plt Count 255 K/mm3 (140-440) 01/17/21 05:08 Lymph % (Auto) 34.4 % (13.4-35.0) 01/17/21 05:08 [place] % (Auto) 8.4 % (0.0-7.3) H 01/17/21 05:08 Eos % (Auto) 1.9 % (0.0-4.3) 01/17/21 05:08 Baso % (Auto) 0.5 % (0.0-1.8) 01/17/21 05:08 Lymph # (Auto) 3.2 K/mm3 (1.2-5.4) 01/17/21 05:08 [place] # (Auto) 0.8 K/mm3 (0.0-0.8) 01/17/21 05:08 Eos # (Auto) 0.2 K/mm3 (0.0-0.4) 01/17/21 05:08 Baso # (Auto) 0.1 K/mm3 (0.0-0.1) 01/17/21 05:08 Seg Neutrophils % 54.8 % (40.0-70.0) 01/17/21 05:08 Seg Neutrophils # 5.1 K/mm3 (1.8-7.7) 01/17/21 05:08 PT 13.9 Sec. (12.2-14.9) 01/16/21 08:20 INR 1.01 (0.87-1.13) 01/16/21 08:20 APTT 28.6 Sec. (24.2-36.6) 01/16/21 08:20 D-Dimer < 135 ng/mlDDU (0-234) 01/16/21 07:05 Sodium 140 mmol/L (137-145) 01/17/21 05:08 Potassium 3.3 mmol/L (3.6-5.0) L 01/17/21 05:08 Chloride 101.3 mmol/L (98-107) 01/17/21 05:08 Carbon Dioxide 27 mmol/L (22-30) 01/17/21 05:08 Anion Gap 15 mmol/L 01/17/21 05:08 BUN 6 mg/dL (7-17) L 01/17/21 05:08 Creatinine 0.5 mg/dL (0.6-1.2) L 01/17/21 05:08 Estimated GFR > 60 ml/min 01/17/21 05:08 BUN/Creatinine Ratio 12 % 01/17/21 05:08 Glucose 98 mg/dL (65-100) 01/17/21 05:08 Hemoglobin A1c 5.3 % (4-6) 01/16/21 19:23 Calcium 9.8 mg/dL (8.4-10.2) 01/17/21 05:08 Magnesium 2.00 mg/dL (1.7-2.3) 01/16/21 07:05 Total Bilirubin 0.80 mg/dL (0.1-1.2) 01/17/21 05:08 Direct Bilirubin < 0.2 mg/dL (0-0.2) 01/16/21 07:05 Indirect Bilirubin 0.1 mg/dL 01/16/21 07:05 AST 22 units/L (5-40) 01/17/21 05:08 ALT 14 units/L (7-56) 01/17/21 05:08 Alkaline Phosphatase 85 units/L (35-129) 01/17/21 05:08 Troponin T 0.085 ng/mL (0.00-0.029) H D 01/17/21 05:08 Total Protein 7.3 g/dL (6.3-8.2) 01/17/21 05:08 Albumin 4.3 g/dL (3.9-5) 01/17/21 05:08 Albumin/Globulin Ratio 1.4 % 01/17/21 05:08 Triglycerides 80 mg/dL (2-149) 01/17/21 00:16 Cholesterol 164 mg/dL (50-199) 01/17/21 00:16 LDL Cholesterol Direct 105 mg/dL (50-130) 01/17/21 00:16 HDL Cholesterol 55 mg/dL (40-59) 01/17/21 00:16 Cholesterol/HDL Ratio 2.98 % 01/17/21 00:16 [place]/IV: Voiding Method Toilet Active Medications - Current Medications Current Medications: Generic Name Dose Route Start Last Admin Trade Name Freq PRN Reason Stop Dose Admin Acetaminophen 650 mg 01/16/21 18:32 Acetaminophen 325 Mg Tab PO Q4H PRN Pain MILD(1-3)/Fever >100.5/MAC Hydrocodone Bitart/Acetaminophen 2 each 01/16/21 18:32 Hydrocodone/Acetaminophen 5-325 Mg Tab PO Q6H PRN Pain, Moderate (4-6) Aspirin 81 mg 01/17/21 12:00 Aspirin 81 Mg Tab Chew PO QDAY GIN Carvedilol 6.25 mg 01/17/21 08:00 01/17/21 09:18 Carvedilol 6.25 Mg Tab PO 6.25 mg BID GIN Administration Famotidine 20 mg 01/16/21 22:00 01/17/21 09:17 Famotidine 20 Mg/2 Ml Inj IV 20 mg BID GIN Administration Heparin Sodium (Porcine) 5,000 unit 01/16/21 22:00 01/17/21 09:17 Heparin 5,000 Unit/1 Ml Vial SUB-Q 5,000 unit Q12HR GIN Administration Hydralazine HCl 10 mg 01/17/21 08:00 Hydralazine 20 Mg/1 Ml Inj IV Q3H PRN Blood Pressure Hydromorphone HCl 0.5 mg 01/16/21 18:32 01/16/21 19:42 Hydromorphone 1 Mg/1 Ml Inj IV 0.5 mg Q3H PRN Administration Pain , Severe (7-10) Dextrose/Sodium Chloride 1,000 mls @ 75 mls/hr 01/16/21 19:00 D5ns IV DIRECT GIN Metoclopramide HCl 10 mg 01/16/21 18:32 Metoclopramide 10 Mg/2 Ml Inj IV Q6H PRN Nausea And Vomiting Morphine Sulfate 2 mg 01/16/21 16:12 01/16/21 16:24 Morphine 2 Mg/1 Ml Inj IV 2 mg Q3H PRN Administration Pain, Moderate (4-6) Ondansetron HCl 4 mg 01/16/21 18:32 Ondansetron 4 Mg/2 Ml Inj IV Q8H PRN Nausea And Vomiting Potassium Chloride 40 meq 01/17/21 08:00 01/17/21 09:17 Potassium Chloride Er 20 Meq Tab PO 01/17/21 12:00 40 meq ONCE GIN Administration Sodium Chloride 10 ml 01/16/21 22:00 01/17/21 09:18 Sodium Chloride 0.9% 10 Ml Flush Syringe IV 10 ml BID GIN Administration Sodium Chloride 10 ml 01/16/21 18:32 Sodium Chloride 0.9% 10 Ml Flush Syringe IV PRN PRN LINE FLUSH Valsartan 160 mg 01/17/21 08:00 01/17/21 09:18 Valsartan 160mg Tab PO 160 mg Q12H GIN Administration
[2021-01-17] MEDS: ASPIRIN 81 MG TAB CHEW PO SCH (12:12)
[2021-01-17] MEDS ORDERED: SODIUM CHLORIDE 0.9% 500 ML 500 ML IV SCH (13:00)
[2021-01-17] MEDS ORDERED: POTASSIUM CHLORIDE 10 MEQ 10 MEQ/100 ML BAG IV ONE (13:00)
[2021-01-17] MEDS: fentaNYL 100 MCG/2 ML INJ ONE ×2 (13:07→13:17)
[2021-01-17] MEDS: NITROGLYCERIN SYRINGE 3 ML ONE ×2 (13:07→13:19)
[2021-01-17] MEDS: MIDAZOLAM 2 MG/2 ML INJ ONE ×2 (13:07→13:17)
[2021-01-17] MEDS: LIDOCAINE (2%) 20 MG/1 ML VIAL 20 ML MDV INFILTRATI ONE ×2 (13:08→13:18)
[2021-01-17] MEDS: VERAPAMIL 5 MG/2 ML INJ ONE ×2 (13:09→13:19)
[2021-01-17] MEDS: HEPARIN 10,000 UNITS/10 ML VIAL ONE ×3 (13:09→13:33)
[2021-01-17] MEDS ORDERED: NITROGLYCERIN SYRINGE 3 ML ONE (13:29)
[2021-01-17] MEDS ORDERED: ATROPINE 0.1% (1 MG/10 ML) CARDIAC SYRINGE ONE (13:38)
[2021-01-17] MEDS: CLOPIDOGREL 300 MG TAB ONE ×2 (14:05→20:34)
[2021-01-17] MEDS: ALUM-MAG HYDROXIDE-SIMETHICONE 200-200-20MG/5ML ORAL LIQD 30 ML ONE ×2 (14:05→20:33)
--- NOTE | 2021-01-17 14:16 | Cardiac Catherization Report ---
DATE OF SERVICE: 01/17/2021 CARDIAC CATHETERIZATION AND CORONARY ANGIOPLASTY REPORT REASON FOR OPERATION: The patient is a 55-year-old woman who was admitted with chest pain and troponin elevation suggestive of a non-ST elevation myocardial infarction. A cardiac catheterization was recommended. PROCEDURES PERFORMED: 1. Left heart catheterization. 2. Selective left and right coronary angiography. 3. Left ventricular angiography. 4. Coronary angioplasty and stenting of the right coronary artery. 5. Sedation time start 1317, end 1345. DESCRIPTION OF PROCEDURE: The patient was prepped and draped in a sterile fashion. After informed consent, the right radial cath site was prepped and draped after negative Fritz's test. The right radial artery was entered using Seldinger technique followed by placement of a 6-Lao hydrophilic sheath. Routine radial cocktail was administered via the sheath. Selective left and right coronary angiography was performed using a #3.5 left Barbara and a #4 right Barbara. Right Barbara was used for left ventricular angiography. FINDINGS: HEMODYNAMICS: Left ventricular end diastolic pressure was 20, following coronary angiography. Ascending aortic pressure was 144/68. There was no significant pressure gradient on pullback across the aortic valve. CORONARY ANGIOGRAPHY: There was moderate diffuse calcification of the left coronary system. The left main coronary artery was otherwise free of significant disease. The left anterior descending artery and its diagonal branches contained mild diffuse luminal irregularities. A medium size ramus intermedius artery contained mild irregularities. The circumflex artery and its obtuse marginal branches similarly contained mild irregularities. The right coronary artery was dominant. This vessel contained an ostial, 75-80% stenosis associated with catheter tip pressure damping. Administration of intracoronary nitroglycerin did not change the severity or morphology of the lesion. Following the ostial lesion, there was another 30% stenosis of the mid segment of this vessel, followed by another 30% stenosis of the distal segment between the acute margin and the right posterior descending branch. There was normal left ventricular systolic function with ejection fraction greater than 60%. CORONARY ANGIOPLASTY: After review of the angiograms, we recommended ad hoc coronary intervention to the ostial stenosis of the right coronary artery. We selected a #4 right Barbara guiding catheter and advanced to the right coronary ostium. A 0.014 inch [employer] 50 guidewire was introduced into the vessel, after wire placement, in the primary stenting maneuver, we deployed a 3.0 x 8 mm drug-eluting stent to the ostial stenosis and inflated the stent to optimal pressures. Following stenting, there was an excellent angiographic result, zero residual stenosis and BIB 3 flow was maintained down the vessel. The catheters and wires were removed, sheath removed and hemostasis achieved using a TR band. The patient was returned to the postprocedure unit in stable condition. There were no complications. IMPRESSION: 1. Coronary artery disease with severe ostial stenosis of the right coronary artery. 2. Successful angioplasty and stenting of the right coronary ostium with deployment of a 3.0 x 8 mm drug-eluting stent. 3. Normal left ventricular systolic function, ejection fraction greater than 60%. TID: [id number] RECEIPT: [id number] CA/SAT
[2021-01-17] MEDS: SODIUM CHLORIDE 0.9% 1000 ML 1,000 ML IV SCH (15:02)
[2021-01-17] MEDS: HYDROcodone/ACETAMINOPHEN 5-325 MG TAB PO PRN (17:10)
[2021-01-18] MEDS: SODIUM CHLORIDE 0.9% 1000 ML 1,000 ML IV SCH (00:31)
[2021-01-18 06:08] LABS: Basophils % (Auto) 0.4 % (0.0-1.8); Eosinophils # (Auto) 0.1 K/mm3 (0.0-0.4); Eosinophils % (Auto) 1.2 % (0.0-4.3); Hematocrit 35.3 % (30.3-42.9); Hemoglobin 12.1 gm/dl (10.1-14.3); Lymphocytes # (Auto) 3.9 K/mm3 (1.2-5.4); Lymphocytes % (Auto) 36.2 % (13.4-35.0); Mean Corpuscular HGB Conc 34 % (30-34); Mean Corpuscular Volume 98 fl (79-97); Monocytes # (Auto) 1.1 K/mm3 (0.0-0.8); Monocytes % (Auto) 10.2 % (0.0-7.3); Platelet Count 252 K/mm3 (140-440); Red Blood Count 3.61 M/mm3 (3.65-5.03); Red Cell Distribution Width 12.9 % (13.2-15.2)
[2021-01-18 06:32] LABS: Blood Urea Nitrogen 5 mg/dL (7-17); Calcium 8.7 mg/dL (8.4-10.2); Hemolysis Index 4
[2021-01-18 06:34] LABS: BUN/Creatinine Ratio 13
--- NOTE | 2021-01-18 08:28 | XRay Report ---
CHEST 1 VIEW 01/18/2021 6:37 AM INDICATION / CLINICAL INFORMATION: post pci. COMPARISON: 01/16/2021 FINDINGS: SUPPORT DEVICES: None. HEART / MEDIASTINUM: No significant abnormality. LUNGS / PLEURA: No significant pulmonary or pleural abnormality. No pneumothorax. ADDITIONAL FINDINGS: No significant additional findings. IMPRESSION: 1. No acute findings. Signer Name: Justin Vidales MD Signed: 01/18/2021 8:23 AM Workstation Name: [id number]
[2021-01-18] MEDS: ASPIRIN 81 MG TAB CHEW PO SCH (09:15)
[2021-01-18] MEDS: carvediloL 6.25 MG TAB PO SCH (09:15)
[2021-01-18] MEDS: FAMOTIDINE 20 MG/2 ML INJ IV SCH (09:16)
[2021-01-18] MEDS: HEPARIN 5,000 UNIT/1 ML VIAL SUB-Q SCH (09:16)
[2021-01-18] MEDS: VALSARTAN 160MG TAB PO SCH (09:24)
[2021-01-18] MEDS ORDERED: MAGNESIUM HYDROXIDE (MOM) ORAL LIQD UDC PO SCH (10:00)
[2021-01-18] MEDS ORDERED: CLOPIDOGREL 75 MG TAB PO SCH (10:00)
--- NOTE | 2021-01-18 10:06 | Electrocardiograph Report ---
[facility] Test Date: 2021-01-18 Test Time: 07:42:32 Pat Name: DELMI DAVIS Department: Room: A463 1 Gender: F Tour Actor: ISHA : 1965 Requested By: ADRIEL ROSALES Order Number: [id number] Reading MD: Paulo Louis Measurements Intervals [place] Rate: 63 P: 44 ID: [id number] QRS: -42 QRSD: 106 T: 57 QT: 450 QTc: 463 Interpretive Statements Sinus rhythm LAD, consider left anterior fascicular block Compared to ECG 01/16/2021 07:01:59 Incomplete right bundle-branch block no longer present Electronically Signed On 01-18-2021 10:05:45 EDT by Paulo Louis
--- NOTE | 2021-01-18 10:45 | Progress Note ---
Assessment and Plan Chest pain [facility] revealed stenosis at the ostium of the right coronary artery, proceeded with ad hoc coronary intervention with deployment of a 3.0 mm drug-eluting stent. LVEF 60%. Elevated troponin, mild Hypertension -better Hypokalemia -resolved Tobacco abuse Recommendations: Strongly advised smoking cessation. Continue on optimal medical therapy for CAD including dual oral antiplatelet therapy aspirin and Plavix without interruption. Stable cardiac king for discharge home with outpatient cardiac follow up in 3-5 days. Subjective Date of service: 01/18/21 Interval history: Patient is sitting up in bed and appears comfortable. She denies chest pain and shortness of breath. No edema or pain of right radial cath site. Objective Vital Signs Temp Pulse Pulse Pulse Resp BP BP 01/18/21 09:24 71 140/62 01/18/21 09:16 71 140/62 01/18/21 09:15 71 140/62 01/18/21 08:59 01/18/21 08:25 98.5 F 68 18 142/78 01/18/21 07:36 87 87 16 01/18/21 07:00 64 01/18/21 04:06 98.6 F 75 20 130/58 01/18/21 01:05 98.6 F 01/18/21 00:00 77 20 121/61 01/17/21 22:10 01/17/21 19:54 97.8 F 91 H 20 112/66 01/17/21 17:10 74 17 112/54 01/17/21 16:54 87 116/57 01/17/21 16:46 97.8 F 74 98/52 01/17/21 16:33 17 01/17/21 15:42 98.3 F 20 158/97 01/17/21 15:37 67 183/92 01/17/21 15:21 98.7 F 61 20 184/92 01/17/21 15:02 67 158/79 01/17/21 15:00 61 Pulse Ox 01/18/21 09:24 01/18/21 09:16 01/18/21 09:15 01/18/21 08:59 99 01/18/21 08:25 100 01/18/21 07:36 98 01/18/21 07:00 01/18/21 04:06 96 01/18/21 01:05 01/18/21 00:00 99 01/17/21 22:10 100 01/17/21 19:54 97 01/17/21 17:10 01/17/21 16:54 01/17/21 16:46 01/17/21 16:33 01/17/21 15:42 01/17/21 15:37 01/17/21 15:21 95 01/17/21 15:02 01/17/21 15:00 - Physical Examination General: No Apparent Distress HEENT: Positive: PERRL Neck: Positive: trachea midline Cardiac: Positive: Reg Rate and Rhythm Lungs: Positive: Normal Breath Sounds Neuro: Positive: Grossly Intact Extremities: Absent: edema - Labs and Meds CBC 01/18/21 Range/Units 05:01 WBC 10.8 (4.5-11.0) K/mm3 RBC 3.61 L (3.65-5.03) M/mm3 Hgb 12.1 (10.1-14.3) gm/dl Hct 35.3 (30.3-42.9) % Plt Count 252 (140-440) K/mm3 Lymph # (Auto) 3.9 (1.2-5.4) K/mm3 [place] # (Auto) 1.1 H (0.0-0.8) K/mm3 Eos # (Auto) 0.1 (0.0-0.4) K/mm3 Baso # (Auto) 0.0 (0.0-0.1) K/mm3 Comprehensive Metabolic Panel 01/17/21 01/18/21 Range/Units 18:22 05:01 Sodium 138 (137-145) mmol/L Potassium 4.4 D 4.3 (3.6-5.0) mmol/L Chloride 106.1 (98-107) mmol/L Carbon Dioxide 21 L (22-30) mmol/L BUN 5 L (7-17) mg/dL Creatinine 0.4 L (0.6-1.2) mg/dL Glucose 95 (65-100) mg/dL Calcium 8.7 (8.4-10.2) mg/dL
[2021-01-18 11:58] VITALS: BP 151/84
--- NOTE | 2021-01-18 12:10 | Discharge Summary ---
Providers - Providers Date of Admission: 01/17/21 12:28 Date of discharge: 01/18/21 Attending physician: AVI BOLES 01/17/21 Consult to Cardiac Rehabilitation [CONS] Routine Reason For Exam: post pci 01/17/21 11:41 Consult to Physician [CONS] Routine Comment: Consulting Provider: ADRIEL ROSALES Physician Instructions: Reason For Exam: NSTEMI 01/18/21 11:12 Consult to Dietitian/Nutrition [CONS] Routine Physician Instructions: Reason For Exam: Reason for Consult: Heart Healthy Diet prior to DC today Hospitalization Reason for admission: Chest pain of 1 day duration Condition: Stable Pertinent studies: Multiple chest x-rays CTA chest Procedures: Left heart catheterization Hospital course: 55-year-old female patient with history of hypertension, recurrent headaches was admitted through emergency room with history of retrosternal chest pain of 1 day duration. Initial work-up is consistent with non-ST elevation IA, patient was admitted appropriately managed with necessary cardiac treatment , patient was evaluated by assistant professor of radiology subsequently underwent left heart catheterization which revealed stenosis at the ostium of the right coronary artery patient had deployment of 3.0 mm drug-eluting stent and was placed on dual antiplatelet therapy aspirin and Plavix without interruption. Patient's LVEF 60% Smoking cessation counseled and advised nicotine patch. cardiology cleared for discharge advised smoking cessation and aggressive risk factor modification and follow-up visit in 1 week Today patient is comfortable, no new complaints, vital signs stable and physical examination prior to discharge is unremarkable, Patient is hemodynamically and clinically stable at discharge. Discharge diagnosis: --Non-ST elevation IA Current Visit: Yes Status: Acute Evaluated by cardiology, patient had left heart catheterization Which revealed stenosis at the ostium of the right coronary artery Had PCI to RCA, cardiology placed on dual antiplatelet therapy --CAD status post PCI to RCA dual antiplatelets aspirin and Plavix, beta-blockers, MAINE inhibitors, nitrates, statins Cardiac diet, Follow-up cardiology and primary care physician --Hypertensive emergency present on admission Current Visit: Yes Status: Acute , Now well controlled, continue current antihypertensives -- COPD (chronic obstructive pulmonary disease) Current Visit: Yes Status: Chronic DuoNebs as needed --Nicotine dependence Current Visit: Yes Status: Chronic Patient counseled smoking cessation Advised NicoDerm patch as needed --Hypokalemia Current Visit: Yes Status: Acute Supplemented, resolved --DVT prophylaxis Current Visit: Yes Status: Acute Received subcu heparin during hospital stay Advised increase ambulation as tolerated upon discharge Patient is hemodynamically and clinically stable at discharge Disposition: DC-01 TO HOME OR SELFCARE Final Discharge Diagnosis (Prints w/discharge instructions): Non-ST elevation IA. Coronary artery disease. s/p PCI to RCA. Hypertensive emergency. COPD. Hypokalemia. Ongoing up tobacco use Time spent for discharge: 35 min Core Measure Documentation - Palliative Care Palliative Care/ Comfort Measures: Not Applicable - Core Measures Any of the following diagnoses?: acute IA - Acute IA Discharge Requirements Aspirin at discharge: Yes MAINE/ARB for LVSD if EF <40%: Yes Beta sondra at discharge: Yes Statin for LDL = or >100 mg/dl on DC: Yes Exam - Constitutional Vitals: Temp Pulse Resp BP Pulse Ox 97.3 F L 64 16 151/84 98 01/18/21 11:57 01/18/21 11:57 01/18/21 11:57 01/18/21 11:57 01/18/21 11:57 General appearance: Present: no acute distress, well-nourished - EENT Eyes: Present: PERRL, EOM intact - Neck Neck: Present: supple, normal ROM - Respiratory Respiratory effort: normal Respiratory: bilateral: diminished, negative: rales, rhonchi, wheezing - Cardiovascular Rhythm: regular Heart Sounds: Present: S1 & S2 - Extremities Extremities: no ischemia, No edema - Abdominal General gastrointestinal: Present: soft, non-tender, non-distended, normal bowel sounds - Integumentary Integumentary: Present: clear, warm - Musculoskeletal Musculoskeletal: strength equal bilaterally, generalized weakness - Psychiatric Psychiatric: appropriate mood/affect, cooperative - Neurologic Neurologic: moves all extremities Plan Activity: advance as tolerated Diet: other (cardiac diet) Special Instructions: smoking cessation Additional Instructions: Follow-up primary care physician within 1 week. Follow assistant professor of radiology Dr. Ni in 3 -5 days. If you have worsening symptoms contact MD or go to emergency room as needed. Strongly advised to comply with medications diet, follow-up visits per schedule,. Advised smoking cessation Follow up with: SARA ZIMMERMAN [Other] - 3-5 Days ADRIEL ROSALES MD [Staff Physician] - 3 Days Prescriptions: Aspirin [Aspirin BABY CHEW TAB] 81 mg PO QDAY #30 tab.chew carvediloL [Coreg] 6.25 mg PO BID #60 tablet Valsartan [Diovan] 160 mg PO Q12H #60 tablet Nicotine [Habitrol] 14 mg TD DAILY #30 patch ISOSORBIDE MONOnitrate [Imdur ER] 30 mg PO QDAY #30 tablet AtorvaSTATin [Lipitor] 40 mg PO QHS #30 tablet HYDROcodone/APAP 5-325 [[place] 5-325 mg TAB] 1 each PO Q6H PRN #14 tablet PRN Reason: Pain, Moderate (4-6) Famotidine [Pepcid] 20 mg PO BID #20 tablet Clopidogrel [Plavix] 75 mg PO QDAY #30 tablet
[2021-01-18] MEDS: HYDROcodone/ACETAMINOPHEN 5-325 MG TAB PO PRN (13:16)
[2021-01-18] MEDS ORDERED: FAMOTIDINE 20 MG TAB PO SCH (22:00)
--- NOTE | 2021-01-19 09:13 | Electrocardiograph Report ---
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
[2021-01-19] MEDS ORDERED: MAGNESIUM HYDROXIDE (MOM) ORAL LIQD UDC PO PRN (10:00)
== END 2021-01-18 15:07 | disposition home or self-care (01) | DRG 246 ==
LOC: ED 06:53 → 4A 09:45 → OBSVTOIN 01-17 12:28
PROVIDERS: ADMIT Internal Medicine; ATTEND Internal Medicine
PROC: 4A023N7 Measurement of Cardiac Sampling and Pressure, Left Heart, Percutaneous Approach (ICD-10-PCS; principal; 2021-01-17)
PROC: 027034Z Dilation of Coronary Artery, One Artery with Drug-eluting Intraluminal Device, Percutaneous Approach (ICD-10-PCS; 2021-01-17)
PROC: B2111ZZ Fluoroscopy of Multiple Coronary Arteries using Low Osmolar Contrast (ICD-10-PCS; 2021-01-17)
PROC: B2151ZZ Fluoroscopy of Left Heart using Low Osmolar Contrast (ICD-10-PCS; 2021-01-17)
DX: I21.4 Non-ST elevation (NSTEMI) myocardial infarction (principal); I50.31 Acute diastolic (congestive) heart failure; I16.1 Hypertensive emergency; E87.6 Hypokalemia; I24.9 Acute ischemic heart disease, unspecified; J44.9 Chronic obstructive pulmonary disease, unspecified; J45.909 Unspecified asthma, uncomplicated; M19.90 Unspecified osteoarthritis, unspecified site; G43.909 Migraine, unspecified, not intractable, without status migrainosus; I25.110 Atherosclerotic heart disease of native coronary artery with unstable angina pectoris; F17.210 Nicotine dependence, cigarettes, uncomplicated; Z95.5 Presence of coronary angioplasty implant and graft; Z98.891 History of uterine scar from previous surgery
CPT/HCPCS: 36415; 71045; 71046; 71260; 80048; 80053; 80061; 80076; 83036; 83735; 84132; 84484; 85025; 85379; 85610; 85730; 92928; 93005; 93458; 96374; 96375; 99406; G0378; C1769; C1874; C1887; C1894; C9600; J0360; J0461; J1170; J1644; J2250; J2270; J3010; J3480; J7030; J7040; Q9967

== ENCOUNTER 2021-02-13 17:58 | Emergency (ER) | payer OTHER ==
--- NOTE | 2021-02-13 19:20 | XRay Report ---
CHEST 2 VIEWS INDICATION / CLINICAL INFORMATION: chest pain. COMPARISON: January 18, 2021 FINDINGS: SUPPORT DEVICES: None. HEART / MEDIASTINUM: No significant abnormality. LUNGS / PLEURA: No significant pulmonary or pleural abnormality. No pneumothorax. ADDITIONAL FINDINGS: No significant additional findings. IMPRESSION: 1. No acute findings. Signer Name: Nehemias Escobar DO Signed: 02/13/2021 7:16 PM Workstation Name: [id number]
[2021-02-13 20:33] LABS: Basophils # (Auto) 0.1 K/mm3 (0.0-0.1); Basophils % (Auto) 0.8 % (0.0-1.8); Eosinophils # (Auto) 0.4 K/mm3 (0.0-0.4); Eosinophils % (Auto) 6.1 % (0.0-4.3); Hematocrit 35.9 % (30.3-42.9); Hemoglobin 12.4 gm/dl (10.1-14.3); Lymphocytes # (Auto) 1.8 K/mm3 (1.2-5.4); Lymphocytes % (Auto) 28.1 % (13.4-35.0); Mean Corpuscular HGB Conc 35 % (30-34); Mean Corpuscular Volume 99 fl (79-97); Monocytes # (Auto) 0.9 K/mm3 (0.0-0.8); Monocytes % (Auto) 14.2 % (0.0-7.3); Platelet Count 220 K/mm3 (140-440); Red Blood Count 3.65 M/mm3 (3.65-5.03); Red Cell Distribution Width 12.9 % (13.2-15.2)
[2021-02-13 20:46] LABS: Alanine Aminotransferase 21 units/L (7-56); Blood Urea Nitrogen 13 mg/dL (7-17); Calcium 9.8 mg/dL (8.4-10.2); Hemolysis Index 2
--- NOTE | 2021-02-13 20:48 | Emergency Department Report ---
ED General Adult HPI - General Chief complaint: Chest Pain Stated complaint: CP/CONGESTION Time Seen by Provider: 02/13/21 20:05 Source: patient Mode of arrival: Ambulatory Limitations: No Limitations - History of Present Illness Initial comments: 55-year-old female patient with history of tobacco use and coronary artery disease presents to the emergency department with complaints of right sided chest pain and productive cough starting last week. Patient states the pain is "sharp" and worse with coughing/breathing. Patient states the pain is not as severe as the pain she experienced with her NSTEMI requiring PCI last month. She has been compliant with her dual antiplatelet therapy. Patient has not received her COVID-19 vaccination series. No known sick contacts. No current steroid or antibiotic use. Recently discontinued tobacco use. Denies fever, chills, nausea, vomiting, diaphoresis, syncope, palpitations. Denies all other complaints at this time. - Related Data Previous Rx's Medication Instructions Recorded Last Taken Type Aspirin [Aspirin BABY CHEW TAB] 81 mg PO QDAY #30 tab.chew 01/18/21 Unknown Rx AtorvaSTATin [Lipitor] 40 mg PO QHS #30 tablet 01/18/21 Unknown Rx Clopidogrel [Plavix] 75 mg PO QDAY #30 tablet 01/18/21 Unknown Rx Famotidine [Pepcid] 20 mg PO BID #20 tablet 01/18/21 Unknown Rx HYDROcodone/APAP 5-325 [[place] 1 each PO Q6H PRN #14 tablet 01/18/21 Unknown Rx 5-325 mg TAB] ISOSORBIDE MONOnitrate [Imdur ER] 30 mg PO QDAY #30 tablet 01/18/21 Unknown Rx Nicotine [Habitrol] 14 mg TD DAILY #30 patch 01/18/21 Unknown Rx Valsartan [Diovan] 160 mg PO Q12H #60 tablet 01/18/21 Unknown Rx carvediloL [Coreg] 6.25 mg PO BID #60 tablet 01/18/21 Unknown Rx Benzonatate [Tessalon Perles] 200 mg PO Q8HR #30 capsule 02/14/21 Unknown Rx guaiFENesin/DEXTROMETHORPHAN 1 each PO Q6H #20 capsule 02/14/21 Unknown Rx [Coricidin Hbp Chest Robert-Cough] predniSONE [Deltasone] 20 mg PO QDAY 5 Days tab 02/14/21 Unknown Rx Allergies Allergy/AdvReac Type Severity Reaction Status Date / Time No Known Allergies Allergy Verified 12/23/20 03:06 ED Review of Systems ROS: Stated complaint: CP/CONGESTION Other details as noted in HPI Other: GENERAL: Negative for fever, chills, weight change, anorexia, fatigue. ENT: Positive for congestion. CARDIOVASCULAR: Positive for chest pain. PULMONARY: Positive for cough. GASTROINTESTINAL: Negative for abdominal pain, nausea, vomiting, diarrhea, constipation. MUSCULOSKELETAL: Negative for joint pain, joint swelling, myalgias, back pain, neck pain. NEUROLOGICAL: Negative for headache, seizure, syncope, paresthesias, weakness. INTEGUMENTARY: Negative for erythema, rash, diaphoresis, laceration, ecchymosis. HEMATOLOGICAL: Negative for hemoptysis, hematemesis, hematochezia, hematuria. PSYCHIATRIC: Negative for hallucinations, suicidal ideation, homicidal ideation, anxiety, depression. ED Past Medical Hx - Past Medical History Previous Medical History?: Yes Hx Hypertension: Yes Hx Congestive Heart Failure: No Hx Diabetes: No Hx Arthritis: Yes Hx Headaches / Migraines: Yes Hx Asthma: No Hx COPD: No Additional medical history: chest pain, denies any stents - Surgical History Additional Surgical History: c-sections x 2 - Social History Smoking Status: Current Every Day Smoker - Medications Home Medications: Home Medications Medication Instructions Recorded Confirmed Last Taken Type Aspirin [Aspirin BABY CHEW TAB] 81 mg PO QDAY #30 tab.chew 01/18/21 Unknown Rx AtorvaSTATin [Lipitor] 40 mg PO QHS #30 tablet 01/18/21 Unknown Rx Clopidogrel [Plavix] 75 mg PO QDAY #30 tablet 01/18/21 Unknown Rx Famotidine [Pepcid] 20 mg PO BID #20 tablet 01/18/21 Unknown Rx HYDROcodone/APAP 5-325 [[place] 1 each PO Q6H PRN #14 tablet 01/18/21 Unknown Rx 5-325 mg TAB] ISOSORBIDE MONOnitrate [Imdur ER] 30 mg PO QDAY #30 tablet 01/18/21 Unknown Rx Nicotine [Habitrol] 14 mg TD DAILY #30 patch 01/18/21 Unknown Rx Valsartan [Diovan] 160 mg PO Q12H #60 tablet 01/18/21 Unknown Rx carvediloL [Coreg] 6.25 mg PO BID #60 tablet 06/30/21 Unknown Rx Benzonatate [Tessalon Perles] 200 mg PO Q8HR #30 capsule 02/14/21 Unknown Rx guaiFENesin/DEXTROMETHORPHAN 1 each PO Q6H #20 capsule 02/14/21 Unknown Rx [Coricidin Hbp Chest Robert-Cough] predniSONE [Deltasone] 20 mg PO QDAY 5 Days tab 02/14/21 Unknown Rx ED Physical Exam - General Limitations: No Limitations - Other Other exam information: General: Awake and alert. No acute distress. Head: Atraumatic, normocephalic. Eyes: EOMI. Pupils are equal and round. Normal sclera and conjunctiva. ENT: Oral mucosa is moist. Normal pharyngeal exam. Neck: Supple. No lymphadenopathy. Pulmonary: No respiratory distress. Right sided chest pain is reproducible with coughing and deep inhalation. Diffuse inspiratory and expiratory wheezing with scattered rhonchi throughout. Cardiac: Regular rate and rhythm. Pulses are palpable and equal bilaterally. No lower extremity cyanosis or edema. Skin: Warm and dry. No rashes. Abdomen: Soft, non-tender, non-protuberant. No guarding, rigidity, or rebound. Bowel sounds are normal. No organomegaly or masses noted. Back: Normal alignment. No CVA tenderness. Extremities: Symmetrical. Full range of motion intact. Neurological: Alert and oriented, appropriately interactive, no focal deficits. Psych: Cooperative. Appropriate mood and affect. Speech is evenly metered. Tho ughts are logically construed. ED Course Vital Signs 02/13/21 02/13/21 02/13/21 18:06 21:30 22:35 Temperature 97.9 F Pulse Rate 69 Pulse Rate [ 88 90 Posterior Bilateral Throughout] Respiratory 20 Rate Respiratory 24 20 Rate [Posterior Bilateral Throughout] Blood Pressure 174/91 O2 Sat by Pulse 100 Oximetry ED Medical Decision Making - Lab Data Result diagrams: 02/13/21 19:30 02/13/21 19:30 - EKG Data 02/13/21 20:42 EKG shows normal sinus rhythm with a ventricular rate of 66 bpm with single PVC. Left axis deviation. Normal WI interval. Normal QT interval. Good R wave progression. No ST segment changes. Over read by attending emergency physician, who agrees with this interpretation. 02/13/21 20:48 02/14/21 01:29 EKG shows normal sinus rhythm with a ventricular rate of 60 bpm. Left axis deviation. Normal WI interval. Normal QT interval. Good R wave progression. No ST segment changes. Over read by attending emergency physician, who agrees with this interpretation - Radiology Data [facility] [address] [place] [address] Cat Scan Report Signed Patient: DELMI DAVIS MR#: [id number] : 1965 Acct:[id number] Age/Sex: 55 / F ADM Date: 02/13/21 Loc: ED Attending Dr: Ordering Physician: TING DYKES Date of Service: 02/13/21 Procedure(s): CT angio chest Accession Number(s): [id number] cc: TING DYKES CTA CHEST WITH IV CONTRAST INDICATION: Pleuritic chest pain, recent positive heart catheterization, possible PE. TECHNIQUE: Axial CT images were obtained through the chest after injection of 100 cc Omnipaque 350 IV contrast. 3 plane MIP reconstructions were produced. All CT scans at this location are performed using CT dose reduction for ALARA by means of automated exposure control. COMPARISON: 2 views of the chest performed today. CT chest with contrast from 01/16/2021 FINDINGS: PULMONARY ARTERIES: No pulmonary emboli. AORTA AND ARTERIES: Mild coronary atherosclerosis is noted with prior stenting of the origin of the right coronary artery. The aorta is normal in caliber with mild atherosclerosis along its course. No other significant abnormalities. HEART: No significant abnormality. MEDIASTINUM: Shotty mediastinal nodes are present without a mass. No significant abnormality of the trachea/main bronchi. LUNGS: No suspicious consolidation, nodule or mass. No pneumothorax or pleural effusion. ADDITIONAL FINDINGS: Shotty axillary nodes are present bilaterally. UPPER ABDOMEN: No acute findings. BONES: No significant osseous abnormality. IMPRESSION: 1. No CT evidence for pulmonary embolism. 2. Nonspecific shotty mediastinal and axillary nodes are favored to be reactive. Please correlate with the clinical findings. 2. Additional findings as above. Signer Name: Awais Daniel MD Signed: 02/14/2021 12:12 AM Workstation Name: [id number] Transcribed By: LEYLA Dictated By: Awais Daniel MD Electronically Authenticated By: Awais Daniel MD Signed Date/Time: 02/14/2111 DD/ 000 TD/TT: - Medical Decision Making Differential diagnosis including but not limited to: acute coronary syndrome, pericarditis (i.e. Amy's syndrome), pericardial effusion/cardiac tamponade, myocarditis, pulmonary embolism, pleural effusion, pneumonia, pneumothorax, viral upper respiratory infection On reevaluation, patient is resting comfortably. Patient's lungs are clear to auscultation on repeat cardiopulmonary exam. No hypoxia, no respiratory distress. Initial and repeat EKG without acute injury pattern. Initial and repeat troponin within normal limits. Remainder of labs are unremarkable. Chest x-ray is negative. CTA of the chest obtained due to pleuritic chest pain in the setting of recent hospitalization and age > 50, which showed nonspecific lymphadenopathy, no discrete mass, no evidence of pulmonary embolism, no acute process. Patient's chest pain is easily reproducible, associated with cough/congestion, right-sided, inconsistent with the chest pain she experienced last month prior to PCI, and unrelated to exertion. She has been compliant with her medications post-PCI. Although clinical presentation is not consistent with acute coronary syndrome or post-PCI complication, due to the patient's multiple risk factors and recent cardiac catheterization, case was discussed with Dr. Rosales, cardiology, who agrees to follow-up with patient in the clinic this week. COVID-19 testing is currently unavailable at this facility. Patient will be treated symptomatically for viral upper respiratory infection. Patient was recently prescribed Carvedilol and therefore beta-agonist inhaler will be withheld. Patient expressed understanding and is agreeable to plan of care. Disease transmission precautions discussed. Strict return precautions provided. Repeat exam is unremarkable and benign. History, exam, diagnostic testing, and current condition do not suggest worrisome pathology to warrant further testing, continued ED treatment, admission, or surgical evaluation at this point. Given the low probability of a significant medical illness, it would be more likely to result in harm than benefit to perform further testing at this stage. Discussed findings, presumptive diagnosis, need for follow-up and specific signs/symptoms that should prompt immediate return to the emergency department. Instructions were explained in detail to the patient in addition to giving written discharge information. Patient expressed understanding and was given the opportunity to a sk questions, all of which were satisfactorily answered prior to discharge home. Case discussed with Dr. Dominguez, attending emergency physician, who agrees with diagnostic work-up/plan of care. Critical care attestation.: If time is entered above; I have spent that time in minutes in the direct care of this critically ill patient, excluding procedure time. ED Disposition Clinical Impression: Viral upper respiratory tract infection with cough Disposition: TO HOME OR SELFCARE Is pt being admited?: No Does the pt Need Aspirin: No Condition: Stable Instructions: Viral Respiratory Infection, [id number] Additional Instructions: Take Prednisone with food as directed. Take Coricidin as directed for cough/congestion. Take Tessalon as directed for cough. Honey is an excellent natural cough suppressant. Exposure to warm you minified air may help relieve cough/congestion. Rest. Drink plenty of fluids. Wash hands frequently to prevent disease transmission. Do not share food or drinks with others. Continue to refrain from tobacco use. Follow-up with your primary care provider this week. Call tomorrow to schedule an appointment. Follow-up with your principal technical writer this week. Call tomorrow to schedule an appointment. Return to the emergency department immediately for new or worsening symptoms. Prescriptions: guaiFENesin/DEXTROMETHORPHAN [Coricidin Hbp Chest Robert-Cough] 1 each PO Q6H #20 capsule predniSONE [Deltasone] 20 mg PO QDAY 5 Days tab Benzonatate [Tessalon Perles] 200 mg PO Q8HR #30 capsule Referrals: SHEELA MCNAMARA [Other] - 3-5 Days ADRIEL ROSALES MD [Staff Physician] - 3-5 Days Time of Disposition: 01:39 HEART Score - HEART Score History: Slightly suspicious EKG: Normal Age: 45-65 Risk factors: > 3 risk factors or hx of atherosclerotic disease Troponin: Troponin T < 0.010 ng/mL (0.00-0.029) 02/13/21 21:29 Troponin: < normal limit HEART Score: 3
[2021-02-13 20:50] LABS: BUN/Creatinine Ratio 22
[2021-02-13] MEDS ORDERED: IPRATROPIUM 0.02% NEBU 2.5 ML IH ONE (21:00)
[2021-02-13] MEDS ORDERED: methylPREDNISolone Sod Succinate 125 MG/2 ML INJ IV ONE (21:00)
[2021-02-13] MEDS ORDERED: ALBUTEROL 2.5 MG/3 ML NEBU IH ONE (21:00)
[2021-02-13 21:05] LABS: Albumin 4.8 g/dL (3.9-5)
--- NOTE | 2021-02-14 00:16 | Cat Scan Report ---
CTA CHEST WITH IV CONTRAST INDICATION: Pleuritic chest pain, recent positive heart catheterization, possible PE. TECHNIQUE: Axial CT images were obtained through the chest after injection of 100 cc Omnipaque 350 IV contrast. 3 plane MIP reconstructions were produced. All CT scans at this location are performed using CT dose reduction for ALARA by means of automated exposure control. COMPARISON: 2 views of the chest performed today. CT chest with contrast from 01/16/2021 FINDINGS: PULMONARY ARTERIES: No pulmonary emboli. AORTA AND ARTERIES: Mild coronary atherosclerosis is noted with prior stenting of the origin of the r ight coronary artery. The aorta is normal in caliber with mild atherosclerosis along its course. No o ther significant abnormalities. HEART: No significant abnormality. MEDIASTINUM: Shotty mediastinal nodes are present without a mass. No significant abnormality of the t rachea/main bronchi. LUNGS: No suspicious consolidation, nodule or mass. No pneumothorax or pleural effusion. ADDITIONAL FINDINGS: Shotty axillary nodes are present bilaterally. UPPER ABDOMEN: No acute findings. BONES: No significant osseous abnormality. IMPRESSION: 1. No CT evidence for pulmonary embolism. 2. Nonspecific shotty mediastinal and axillary nodes are favored to be reactive. Please correlate wit h the clinical findings. 2. Additional findings as above. Signer Name: Awais Daniel MD Signed: 02/14/2021 12:12 AM Workstation Name: [id number]
[2021-02-14 02:53] VITALS: BP 176/93
--- NOTE | 2021-02-14 10:33 | Electrocardiograph Report ---
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
--- NOTE | 2021-02-14 10:38 | Electrocardiograph Report ---
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 Electronically Signed On 02-14-2021 10:38:30 EDT by Johan Negron
== END 2021-02-14 01:45 | disposition home or self-care (01) ==
LOC: ED 17:58
DX: J06.9 Acute upper respiratory infection, unspecified (principal); R05 Cough; I10 Essential (primary) hypertension; M19.90 Unspecified osteoarthritis, unspecified site; G43.909 Migraine, unspecified, not intractable, without status migrainosus; F17.200 Nicotine dependence, unspecified, uncomplicated; Z98.890 Other specified postprocedural states
CPT/HCPCS: 36415; 71046; 71275; 80053; 84484; 85025; 93005; 94644; 96374; 99285; J2930; Q9967

== ENCOUNTER 2021-05-05 10:16 | Emergency (ER) | payer OTHER ==
[2021-05-05] MEDS ORDERED: dexAMETHasone 20 MG/5 ML VIAL IV ONE (11:29)
[2021-05-05] MEDS ORDERED: ALBUTEROL 2.5 MG/3 ML NEBU IH ONE ×2 (11:29→14:04)
[2021-05-05] MEDS ORDERED: IPRATROPIUM 0.02% NEBU 2.5 ML IH ONE (11:29)
[2021-05-05] MEDS ORDERED: SODIUM CHLORIDE 0.9% 1000 ML 1,000 ML IV ONE (11:29)
[2021-05-05] MEDS ORDERED: AZITHROMYCIN/NS 500 MG/250 ML 500 MG/250 ML BAG IV ONE (11:32)
[2021-05-05] MEDS ORDERED: cefTRIAXone/NS 2 GM/100 ML 2 GM/100 ML BAG IV ONE (11:32)
[2021-05-05] MEDS ORDERED: SODIUM CHLORIDE 0.9% 1000 ML IV SOLN IV ONE (11:32)
--- NOTE | 2021-05-05 12:12 | XRay Report ---
CHEST 1 VIEW INDICATION: Cough congestion wheezing. COMPARISON: 02/13/2021 FINDINGS: Support devices: None. Heart: Within normal limits. Lungs/Pleura: No acute air space or interstitial disease. Additional findings: None. IMPRESSION: No acute findings. Signer Name: J Carlos Bauer Jr, MD Signed: 05/05/2021 12:08 PM Workstation Name: [id number]
--- NOTE | 2021-05-05 12:18 | Emergency Department Report ---
- General Chief Complaint: Upper Respiratory Infection Stated Complaint: SOB, CONGESTED AND WHEEZING Time Seen by Provider: 05/05/21 11:08 Source: patient Mode of arrival: Ambulatory Limitations: No Limitations - History of Present Illness Initial Comments: Patient 55-year-old F [place]ian female past medical history of some chronic bronchitis who she was told to no longer use her albuterol inhaler and just take flow vent is presenting with cough and congestion for the last week. Denies fever. States she has a deep cough with wheezing and some tightness across the anterior chest. States when she coughs her back hurts as well. Denies nausea vomiting diarrhea body aches or sore throat. Patient states that she is very congested is having difficult time sleeping as well. Patient was not vaccinated against COVID-19. - Related Data Previous Rx's Medication Instructions Recorded Last Taken Type Aspirin [Aspirin BABY CHEW TAB] 81 mg PO QDAY #30 tab.chew 01/18/21 Unknown Rx AtorvaSTATin [Lipitor] 40 mg PO QHS #30 tablet 01/18/21 Unknown Rx Clopidogrel [Plavix] 75 mg PO QDAY #30 tablet 01/18/21 Unknown Rx Famotidine [Pepcid] 20 mg PO BID #20 tablet 01/18/21 Unknown Rx HYDROcodone/APAP 5-325 [[place] 1 each PO Q6H PRN #14 tablet 01/18/21 Unknown Rx 5-325 mg TAB] ISOSORBIDE MONOnitrate [Imdur ER] 30 mg PO QDAY #30 tablet 01/18/21 Unknown Rx Nicotine [Habitrol] 14 mg TD DAILY #30 patch 01/18/21 Unknown Rx Valsartan [Diovan] 160 mg PO Q12H #60 tablet 01/18/21 Unknown Rx carvediloL [Coreg] 6.25 mg PO BID #60 tablet 01/18/21 Unknown Rx Benzonatate [Tessalon Perles] 200 mg PO Q8HR #30 capsule 02/14/21 Unknown Rx guaiFENesin/DEXTROMETHORPHAN 1 each PO Q6H #20 capsule 02/14/21 Unknown Rx [Coricidin Hbp Chest Robert-Cough] predniSONE [Deltasone] 20 mg PO QDAY 5 Days tab 02/14/21 Unknown Rx Albuterol Mdi (or & Nicu Only) 2 puff IH QID PRN #1 inhalation 05/05/21 Unknown Rx [ProAir HFA Inhaler] Benzonatate [Tessalon Perles] 100 mg PO Q8HR #10 capsule 05/05/21 Unknown Rx predniSONE [Deltasone] 50 mg PO QDAY #5 tab 05/05/21 Unknown Rx traMADoL [Ultram] 50 mg PO Q6HR PRN #12 tablet 05/05/21 Unknown Rx Allergies Allergy/AdvReac Type Severity Reaction Status Date / Time No Known Allergies Allergy Verified 12/23/20 03:06 ED Review of Systems ROS: Stated complaint: SOB, CONGESTED AND WHEEZING Other details as noted in HPI Comment: All other systems reviewed and negative ED Past Medical Hx - Past Medical History Previous Medical History?: Yes Hx Hypertension: Yes Hx Congestive Heart Failure: No Hx Diabetes: No Hx Arthritis: Yes Hx Headaches / Migraines: Yes Hx Asthma: No Hx COPD: No Additional medical history: chest pain, denies any stents - Surgical History Past Surgical History?: Yes Additional Surgical History: c-sections x 2 - Social History Smoking Status: Current Every Day Smoker - Medications Home Medications: Home Medications Medication Instructions Recorded Confirmed Last Taken Type Aspirin [Aspirin BABY CHEW TAB] 81 mg PO QDAY #30 tab.chew 01/18/21 Unknown Rx AtorvaSTATin [Lipitor] 40 mg PO QHS #30 tablet 01/18/21 Unknown Rx Clopidogrel [Plavix] 75 mg PO QDAY #30 tablet 01/18/21 Unknown Rx Famotidine [Pepcid] 20 mg PO BID #20 tablet 01/18/21 Unknown Rx HYDROcodone/APAP 5-325 [[place] 1 each PO Q6H PRN #14 tablet 01/18/21 Unknown Rx 5-325 mg TAB] ISOSORBIDE MONOnitrate [Imdur ER] 30 mg PO QDAY #30 tablet 01/18/21 Unknown Rx Nicotine [Habitrol] 14 mg TD DAILY #30 patch 01/18/21 Unknown Rx Valsartan [Diovan] 160 mg PO Q12H #60 tablet 01/18/21 Unknown Rx carvediloL [Coreg] 6.25 mg PO BID #60 tablet 01/18/21 Unknown Rx Benzonatate [Tessalon Perles] 200 mg PO Q8HR #30 capsule 02/14/21 Unknown Rx guaiFENesin/DEXTROMETHORPHAN 1 each PO Q6H #20 capsule 02/14/21 Unknown Rx [Coricidin Hbp Chest Robetr-Cough] predniSONE [Deltasone] 20 mg PO QDAY 5 Days tab 02/14/21 Unknown Rx Albuterol Mdi (or & Nicu Only) 2 puff IH QID PRN #1 inhalation 05/05/21 Unknown Rx [ProAir HFA Inhaler] Benzonatate [Tessalon Perles] 100 mg PO Q8HR #10 capsule 05/05/21 Unknown Rx predniSONE [Deltasone] 50 mg PO QDAY #5 tab 05/05/21 Unknown Rx traMADoL [Ultram] 50 mg PO Q6HR PRN #12 tablet 05/05/21 Unknown Rx ED Physical Exam - General Limitations: No Limitations General appearance: alert, in no apparent distress - Head Head exam: Present: atraumatic, normocephalic - Eye Eye exam: Present: normal appearance - ENT ENT exam: Present: mucous membranes moist - Neck Neck exam: Present: normal inspection - Respiratory Respiratory exam: Present: respiratory distress, wheezes, accessory muscle use. Absent: normal lung sounds bilaterally, rales - Cardiovascular Cardiovascular Exam: Present: regular rate, normal rhythm, normal heart sounds. Absent: systolic murmur, diastolic murmur, rubs, gallop - GI/Abdominal GI/Abdominal exam: Present: soft, normal bowel sounds. Absent: distended, tenderness, guarding, rebound - Extremities Exam Extremities exam: Present: normal inspection - Back Exam Back exam: Present: normal inspection - Neurological Exam Neurological exam: Present: alert, oriented X3 - Psychiatric Psychiatric exam: Present: normal affect, normal mood - Skin Skin exam: Present: warm, dry, intact, normal color. Absent: rash ED Course Vital Signs 05/05/21 05/05/21 05/05/21 10:23 10:24 10:25 Temperature 98.1 F Pulse Rate 139 H 88 Respiratory 16 Rate Blood Pressure 128/81 [Left] O2 Sat by Pulse 92 99 Oximetry 05/05/21 14:13 Temperature Pulse Rate 89 Respiratory 18 Rate Blood Pressure 184/92 [Left] O2 Sat by Pulse 99 Oximetry ED Medical Decision Making - Lab Data Result diagrams: 05/05/21 11:59 05/05/21 11:59 Lab Results 05/05/21 05/05/21 05/05/21 Range/Units 11:59 11:59 11:59 WBC 7.5 (4.5-11.0) K/mm3 RBC 3.99 (3.65-5.03) M/mm3 Hgb 13.1 (10.1-14.3) gm/dl Hct 38.2 (30.3-42.9) % MCV 96 (79-97) fl MCH 33 H (28-32) pg MCHC 34 (30-34) % RDW 12.8 L (13.2-15.2) % Plt Count 276 (140-440) K/mm3 Lymph % (Auto) 27.9 (13.4-35.0) % Gilliam % (Auto) 10.8 H (0.0-7.3) % Eos % (Auto) 0.6 (0.0-4.3) % Baso % (Auto) 0.4 (0.0-1.8) % Lymph # (Auto) 2.1 (1.2-5.4) K/mm3 Gilliam # (Auto) 0.8 (0.0-0.8) K/mm3 Eos # (Auto) 0.0 (0.0-0.4) K/mm3 Baso # (Auto) 0.0 (0.0-0.1) K/mm3 Seg Neutrophils % 60.3 (40.0-70.0) % Seg Neutrophils # 4.5 (1.8-7.7) K/mm3 Sodium 144 (137-145) mmol/L Potassium 3.9 (3.6-5.0) mmol/L Chloride 105.4 (98-107) mmol/L Carbon Dioxide 23 (22-30) mmol/L Anion Gap 20 mmol/L BUN 7 (7-17) mg/dL Creatinine 0.4 L (0.6-1.2) mg/dL Estimated GFR > 60 ml/min BUN/Creatinine Ratio 18 % Glucose 103 H (65-100) mg/dL Lactic Acid 1.40 (0.7-2.0) mmol/L Calcium 9.9 (8.4-10.2) mg/dL - Radiology Data Radiology results: image reviewed (Per my review the patient has hyperinflation consistent with COPD) [facility] [address] [place] [address] XRay Report Signed Patient: DELMI DAVIS MR#: [id number] 8 : 1965 Acct:[id number] Age/Sex: 55 / F ADM Date: 05/05/21 Loc: ED Attending Dr: Ordering Physician: AMADOR OSEGUERA MD Date of Service: 05/05/21 Procedure(s): XR chest 1V ap Accession Number(s): [id number] cc: AMADOR OSEGUERA MD Fluoro Time In Minutes: CHEST 1 VIEW INDICATION: Cough congestion wheezing. COMPARISON: 02/13/2021 FINDINGS: Support devices: None. Heart: Within normal limits. Lungs/Pleura: No acute air space or interstitial disease. Additional findings: None. IMPRESSION: No acute findings. Signer Name: J Carlos Bauer Jr, MD Signed: 05/05/2021 12:08 PM Workstation Name: [id number] - Medical Decision Making Patient's x-ray is consistent with COPD. Patient wheezing diffusely. Patient has no evidence of pneumonia. Patient received 15 mg of albuterol 1 mg of Atrovent with steroids. Patient is wheezing has resolved. She is feeling improved. Patient stable for discharge. Medications for symptomatic relief been prescribed. Critical care attestation.: If time is entered above; I have spent that time in minutes in the direct care of this critically ill patient, excluding procedure time. ED Disposition Clinical Impression: Acute exacerbation of chronic bronchitis Disposition: 01 HOME / SELF CARE / HOMELESS Is pt being admited?: No Does the pt Need Aspirin: No Condition: Stable Instructions: Chronic Bronchitis (ED), Chronic Obstructive Pulmonary Disease, [id number] Referrals: PRIMARY CAREMD [Primary Care Provider] - 3-5 Days Time of Disposition: 15:07
[2021-05-05 12:46] LABS: Basophils % (Auto) 0.4 % (0.0-1.8); Eosinophils % (Auto) 0.6 % (0.0-4.3); Hematocrit 38.2 % (30.3-42.9); Hemoglobin 13.1 gm/dl (10.1-14.3); Lymphocytes # (Auto) 2.1 K/mm3 (1.2-5.4); Lymphocytes % (Auto) 27.9 % (13.4-35.0); Mean Corpuscular HGB Conc 34 % (30-34); Mean Corpuscular Volume 96 fl (79-97); Monocytes # (Auto) 0.8 K/mm3 (0.0-0.8); Monocytes % (Auto) 10.8 % (0.0-7.3); Platelet Count 276 K/mm3 (140-440); Red Blood Count 3.99 M/mm3 (3.65-5.03); Red Cell Distribution Width 12.8 % (13.2-15.2)
[2021-05-05 13:07] LABS: Blood Urea Nitrogen 7 mg/dL (7-17); Calcium 9.9 mg/dL (8.4-10.2); Hemolysis Index 10
[2021-05-05 13:12] LABS: BUN/Creatinine Ratio 18
[2021-05-05 14:13] VITALS: BP 184/92
== END 2021-05-05 15:49 | disposition home or self-care (01) ==
LOC: ED 10:16
DX: J44.1 Chronic obstructive pulmonary disease with (acute) exacerbation (principal); I10 Essential (primary) hypertension; F17.200 Nicotine dependence, unspecified, uncomplicated
CPT/HCPCS: 36415; 71045; 80048; 82140; 85025; 87040; 94640; 96361; 96365; 96367; 96375; 99284; J0456; J0696; J1100; J7030